=== PATIENT | female | born 1995 | race African-American/Black ===

== ENCOUNTER 2019-10-10 16:11 | Emergency (ER) | payer OTHER ==
[2019-10-10 16:56] LABS: BASOPHILS # (AUTO) 0.1 10^3/uL (0.0-0.1); BASOPHILS % (AUTO) 0.8 %; EOSINOPHILS # (AUTO) 0.1 10^3/uL (0.0-0.7); EOSINOPHILS % (AUTO) 0.6 %; HGB - HEMOGLOBIN 14.1 g/dL (12.0-16.0); LYMPHOCYTES # (AUTO) 2.5 10^3/uL (1.5-3.5); LYMPHOCYTES % (AUTO) 23.3 %; MEAN CORPUSCULAR HGB CONC 33.3 g/dL (32.0-36.0); MEAN PLATELET VOLUME 9.5 fL (7.9-10.8); MONOCYTES # (AUTO) 1.1 10^3/uL (0.0-1.0); MONOCYTES % (AUTO) 10.6 %; NEUTROPHILS # (AUTO) 6.8 10^3/uL (1.5-6.6); NEUTROPHILS % (AUTO) 64.3 %; PLT - PLATELET COUNT 294 10^3/uL (130-450); RED CELL DISTRIBUTION WIDTH 13.2 % (12.0-15.0); WHITE BLOOD COUNT 10.5 x10^3/uL (4.8-10.8)
[2019-10-10 17:09] LABS: BILIRUBIN,URINE NEGATIVE (NEGATIVE); GLUCOSE, URINE (UA) NEGATIVE (NEGATIVE); KETONES,URINE (UA) TRACE mg/dL (NEGATIVE); LEUKOCYTE ESTERASE, URINE NEGATIVE (NEGATIVE); NITRITE,URINE NEGATIVE (NEGATIVE); OCCULT BLOOD,URINE NEGATIVE (NEGATIVE); PROTEIN,URINE NEGATIVE (NEGATIVE); UROBILINOGEN,URINE 0.2 (NORMAL) E.U./dL (NORMAL)
[2019-10-10 17:10] LABS: ALBUMIN 4.2 g/dL (3.2-5.5); ALBUMIN/GLOBULIN RATIO 1.2 (1.0-2.2); BILIRUBIN,TOTAL 0.4 mg/dL (0.2-1.0); CALCIUM 9.7 mg/dL (8.5-10.3); CREATININE 0.7 mg/dL (0.4-1.0); TOTAL PROTEIN 7.6 g/dL (6.7-8.2)
--- NOTE | 2019-10-10 17:11 | ED Physician Documentation ---
History of Present Illness - Stated complaint Stated Complaint: NAUS/VOM/DIZZY - Chief complaint Chief Complaint: Abd Pain - History obtained from History obtained from: Patient, Family - History of Present Illness Timing: Today Pain level max: 2 Pain level now: 1 - Additonal information Additional information: 24-year-old female presents to the emergency department stating that she is approximately 6 weeks and has had vomiting x2 today. Has had lower abdominal cramping. No bleeding. 1 para 0. No medical problems. Nothing makes it better or worse. Review of Systems Constitutional: denies: Fever, Chills Respiratory: denies: Cough GI: reports: Nausea, Vomiting. denies: Diarrhea : reports: Now EGA. denies: Dysuria Skin: denies: Rash Musculoskeletal: denies: Neck pain, Back pain Neurologic: denies: Headache PD PAST MEDICAL HISTORY - Past Medical History Past Medical History: No - Past Surgical History Past Surgical History: No - Present Medications Home Medications: Ambulatory Orders Medication Instructions Recorded Confirmed Metoclopramide [Reglan] 10 mg PO Q6H PRN #20 tablet 10/10/19 - Allergies Allergies/Adverse Reactions: Allergies Allergy/AdvReac Type Severity Reaction Status Date / Time No Known Drug Allergies Allergy Verified 10/10/19 16:42 - Living Situation Living Situation: reports: With family Living Arrangement: reports: At home - Social History Does the pt have substance abuse?: No - Family History Family history: reports: Non contributory PD ED PE NORMAL - Vitals Vital signs reviewed: Yes - General General: Alert and oriented X 3, No acute distress - HEENT HEENT: Moist mucous membranes - Neck Neck: Supple, no meningeal sign - Cardiac Cardiac: RRR - Respiratory Respiratory: No respiratory distress, Clear bilaterally - Abdomen Abdomen: Soft, Non tender, Non distended - Derm Derm: Warm and dry - Extremities Extremities: No edema - Neuro Neuro: Alert and oriented X 3 - Psych Psych: Normal mood, Normal affect Results - Vitals Vitals: Vital Signs - 24 hr 10/10/19 10/10/19 16:28 18:33 Temperature 36.4 C L Heart Rate 79 74 Respiratory 20 18 Rate Blood Pressure 146/102 H 129/81 H O2 Saturation 99 99 Oxygen O2 Source Room air - Labs Labs: Laboratory Tests 10/10/19 10/10/19 10/10/19 16:48 16:48 16:48 WBC 10.5 RBC 4.70 Hgb 14.1 Hct 42.3 MCV 90.0 MCH 30.0 MCHC 33.3 RDW 13.2 Plt Count 294 MPV 9.5 Neut # (Auto) 6.8 H Lymph # (Auto) 2.5 Morton # (Auto) 1.1 H Eos # (Auto) 0.1 Baso # (Auto) 0.1 Absolute Nucleated RBC 0.00 Nucleated RBC % 0.0 Sodium 133 L Potassium 3.7 Chloride 98 L Carbon Dioxide 22 Anion Gap 13.0 BUN 10 Creatinine 0.7 Estimated GFR (MDRD) 127 Glucose 97 Calcium 9.7 Total Bilirubin 0.4 AST 16 ALT 14 Alkaline Phosphatase 43 Total Protein 7.6 Albumin 4.2 Globulin 3.4 Albumin/Globulin Ratio 1.2 Lipase 29 HCG, Quant 09828.00 Urine Color Urine Clarity Urine pH Ur Specific [place] Urine Protein Urine Glucose (UA) Urine Ketones Urine Occult Blood Urine Nitrite Urine Bilirubin Urine Urobilinogen Ur Leukocyte Esterase Ur Microscopic Review Urine Culture Comments Blood Type 10/10/19 10/10/19 16:48 17:00 WBC RBC Hgb Hct MCV MCH MCHC RDW Plt Count MPV Neut # (Auto) Lymph # (Auto) Morton # (Auto) Eos # (Auto) Baso # (Auto) Absolute Nucleated RBC Nucleated RBC % Sodium Potassium Chloride Carbon Dioxide Anion Gap BUN Creatinine Estimated GFR (MDRD) Glucose Calcium Total Bilirubin AST ALT Alkaline Phosphatase Total Protein Albumin Globulin Albumin/Globulin Ratio Lipase HCG, Quant Urine Color YELLOW Urine Clarity CLEAR Urine pH 6.0 Ur Specific [place] >=1.030 H Urine Protein NEGATIVE Urine Glucose (UA) NEGATIVE Urine Ketones TRACE Urine Occult Blood NEGATIVE Urine Nitrite NEGATIVE Urine Bilirubin NEGATIVE Urine Urobilinogen 0.2 (NORMAL) Ur Leukocyte Esterase NEGATIVE Ur Microscopic Review NOT INDICATED Urine Culture Comments NOT INDICATED Blood Type O POSITIVE - Rads (name of study) OB ultrasound Radiology: Prelim report reviewed, EMP read contemporaneously, See rad report PD MEDICAL DECISION MAKING - ED course Complexity details: reviewed results, re-evaluated patient, considered differential, d/w patient, d/w family ED course: 24 year old female with an intrauterine , estimated 6 weeks and 3 days. She is well-appearing, nontoxic. Tolerating p.o. without difficulty here. Will prescribe Reglan for home. No significant lab abnormalities. Patient counseled regarding signs and symptoms for which I believe and urgent re- evaluation would be necessary. Patient with good understanding of and agreement to plan and is comfortable going home at this time This document was made in part using voice recognition software. While efforts a re made to proofread this document, sound alike and grammatical errors may occur. 1. Single living intrauterine with calculated gestational age of 6 weeks 3 days corresponding to an estimated delivery date of 06/01/2020. 2. Perigestational hypoechoic region compatible with a subchorionic hematoma. Recommend follow-up clinically. 3. Probable corpus luteal cysts in the ovaries. Departure - Departure Disposition: Home, Self Care Clinical Impression: Qualifiers: Weeks of gestation: unspecified Qualified Code(s): Z34.90 - Encounter for supervision of normal , unspecified, unspecified trimester Vomiting Qualifiers: Vomiting type: unspecified Vomiting Intractability: non-intractable Nausea pr esence: without nausea Qualified Code(s): R11.11 - Vomiting without nausea Condition: Good Instructions: ED Preg Morning Sickness Follow-Up: [facility] [Provider Group] - Within 1 week Prescriptions: Metoclopramide [Reglan] 10 mg PO Q6H PRN #20 tablet PRN Reason: Nausea / Vomiting Comments: . Follow-up with OB for further care. Drink plenty of fluids. You are about 6 weeks along. Discharge Date/Time: 10/10/19 18:51
[2019-10-10 17:17] LABS: CLARITY,URINE CLEAR (CLEAR)
[2019-10-10 18:43] VITALS: BP 129/81
--- NOTE | 2019-10-10 19:07 | Ultrasound Report ---
PROCEDURE: OB First Trimester INDICATIONS: 6 weeks preg, abd pain OUTSIDE/PRIOR DATING DATA: Last menstrual period (LMP): 08/25/2019. LMP-based estimated date of delivery (VERITO): 05/31/2020. First dating scan (date and location): 10/10/2019. Estimated date of delivery (VERITO) from first dating scan: 06/01/2020. TECHNIQUE: Real-time scanning was performed of the fetus and maternal pelvic organs, with image documentation. COMPARISON: None. FINDINGS: Embryo: There is an intrauterine with a gestational sac, yolk sac, and pole identifi ed. The crown-rump length measures up to 0.6 cm corresponding to a gestational age of 6 weeks 3 days. There is heart motion with a rate of 1 37 bpm. There is a small heterogeneous hypoechoic regio n adjacent to the gestational sac compatible with a small subchorionic hematoma, measuring up to appr oximately 2.7 x 1.5 x 1.4 cm. Measurement variability in dating: +/- 4 weeks by LMP, +/- 7 days by mean sac diameter (use before 6 weeks gestation if crown-rump length not able to be measured), +/- 5 days by crown-rump length (6-12 weeks gestation). Maternal organs: Ovaries appear within normal size limits bilaterally. There is a hypoechoic cystic structure within the right ovary with peripheral vascularity on Doppler interrogation measuring up to 2.5 cm likely representing a corpus luteal cyst. A hypoechoic cystic lesion is also demonstrated wit hin the left ovary measuring up to 2.3 cm. Limited images through the kidneys demonstrate no hydronep hrosis. There is a small amount of pelvic free fluid which appears within physiologic limits. IMPRESSION: 1. Single living intrauterine with calculated gestational age of 6 weeks 3 days correspondi ng to an estimated delivery date of 06/01/2020. 2. Perigestational hypoechoic region compatible with a subchorionic hematoma. Recommend follow-up cli nically. 3. Probable corpus luteal cysts in the ovaries. Reviewed by: Laron Russo MD on 10/10/2019 7:05 PM PDT Approved by: Laron Russo MD on 10/10/2019 7:05 PM PDT Station ID: [id number]
== END 2019-10-10 18:51 | disposition home or self-care (01) ==
LOC: ED 16:11
DX: O21.0 Mild hyperemesis gravidarum (principal); Z3A.01 Less than 8 weeks gestation of pregnancy
CPT/HCPCS: 36415; 76801; 76817; 80053; 81001; 81003; 83690; 84702; 85025; 86900; 86901; 87086; 99284

== ENCOUNTER 2019-11-05 20:01 | Emergency (ER) | payer OTHER ==
[2019-11-05] MEDS ORDERED: diphenhydrAMINE INJ 50 MG/ML VIAL IVP STA (20:38)
[2019-11-05] MEDS ORDERED: SODIUM CHLORIDE 0.9% 1,000 ML IV STA (20:38)
[2019-11-05] MEDS ORDERED: PROCHLORPERAZINE 10 MG/2 ML VIAL IVP STA (20:38)
--- NOTE | 2019-11-05 20:41 | ED Physician Documentation ---
History of Present Illness - Stated complaint Stated Complaint: HEADACHE - Chief complaint Chief Complaint: Neuro - History obtained from History obtained from: Patient - Additonal information Additional information: 24-year-old female presents to the emergency department for evaluation of 3 days of headache. She is approximately 10 weeks . This is her first . She reports a longstanding history of headaches that she attributes to migraines. She states that she typically has photosensitivity and nausea which is true with this headache. Today's headache though also radiates down into her neck. She denies that she has had vomiting or diarrhea. She has had no dysuria urgency or frequency. No falls or trauma. She denies leg swelling, chest pain or palpitations. Headache is not sudden onset, nor is it worst of life. Typically when not she takes Excedrin with caffeine and Tylenol for her headache however the Tylenol today did not work therefore she presents to the emergency department. She denies any previous history of hypertension or diabetes. No personal history of blood clots or cancer. Patient seen recently in the emergency department (10/10/2019) for lower abdominal pain. Intrauterine was confirmed with an VERITO of June 01, 2020. Patient denies lower pelvic pain. No vaginal bleeding or discharge. Review of Systems Constitutional: denies: Fever, Chills, Fatigue, Weight Loss Eyes: reports: Photophobia. denies: Loss of vision, Decreased vision Ears: denies: Loss of hearing, Ear pain, Drainage/discharge Nose: denies: Rhinorrhea / runny nose, Congestion Throat: denies: Dental pain / toothache Cardiac: denies: Chest pain / pressure, Palpitations, Pedal edema, Calf pain Respiratory: denies: Dyspnea, Cough, Hemoptysis GI: reports: Nausea. denies: Abdominal Pain, Abdominal Swelling, Vomiting, Constipation, Diarrhea : reports: Now EGA (VERITO 06/02/2019). denies: Dysuria, Frequency, Hesitancy, Unable to Void Skin: reports: Reviewed and negative. denies: Rash, Lesions, Abrasion (s) Musculoskeletal: reports: Neck pain. denies: Back pain, Extremity pain, Joint pain, Extremity swelling Neurologic: reports: Headache. denies: Generalized weakness, Focal weakness, Difficulty speaking, Near syncope, Syncope, Seizure, Confused, Altered mental status, Head injury, LOC Psychiatric: reports: Reviewed and negative PD PAST MEDICAL HISTORY - Past Medical History Cardiovascular: None Respiratory: None Neuro: Headaches, Migraines Endocrine/Autoimmune: None GI: None WARP TIER: None : None HEENT: None Psych: None Musculoskeletal: None Derm: None - Past Surgical History Past Surgical History: No - Present Medications Home Medications: Ambulatory Orders Medication Instructions Recorded Confirmed Metoclopramide [Reglan] 10 mg PO Q6H PRN #20 tablet 10/10/19 Prochlorperazine [Compazine] 5 mg PO BID PRN #5 tablet 11/05/19 - Allergies Allergies/Adverse Reactions: Allergies Allergy/AdvReac Type Severity Reaction Status Date / Time No Known Drug Allergies Allergy Verified 11/05/19 20:12 - Social History Does the pt smoke?: No Smoking Status: Never smoker Does the pt drink ETOH?: No Does the pt have substance abuse?: No - Immunizations Immunizations are current?: Yes PD ED PE NORMAL - General General: Alert and oriented X 3, No acute distress, Well developed/nourished - HEENT HEENT: Atraumatic, EOMI - Neck Neck: Supple, no meningeal sign, No adenopathy - Cardiac Cardiac: RRR, No murmur - Respiratory Respiratory: No respiratory distress, Clear bilaterally - Abdomen Abdomen: Normal bowel sounds, Soft, Non tender - Derm Derm: Normal color, Warm and dry, No rash - Extremities Extremities: No deformity, No tenderness to palpate, Normal ROM s pain - Neuro Neuro: Alert and oriented X 3, tightener 2-12 intact, No motor deficit, No sensory deficit, Normal speech Eye Opening: Spontaneous Motor: Obeys Commands Verbal: Oriented GCS Score: 15 - Psych Psych: Normal mood Results - Vitals Vitals: Vital Signs - 24 hr 11/05/19 11/05/19 20:05 20:21 Temperature 36.1 C L Heart Rate 94 88 Respiratory 16 16 Rate Blood Pressure 134/81 H 126/79 O2 Saturation 99 99 Oxygen O2 Source Room air - Labs Labs: Laboratory Tests 11/05/19 20:40 Urine Color YELLOW Urine Clarity CLEAR Urine pH 6.5 Ur Specific [place] 1.015 Urine Protein NEGATIVE Urine Glucose (UA) NEGATIVE Urine Ketones NEGATIVE Urine Occult Blood NEGATIVE Urine Nitrite NEGATIVE Urine Bilirubin NEGATIVE Urine Urobilinogen 0.2 (NORMAL) Ur Leukocyte Esterase NEGATIVE Ur Microscopic Review NOT INDICATED Urine Culture Comments NOT INDICATED PD MEDICAL DECISION MAKING - ED course Complexity details: reviewed old records, reviewed results, re-evaluated patient, considered differential, d/w patient ED course: This is a 24-year-old female with a known history of headaches presents with 3 days of hemicrania with associated nausea and photosensitivity. This headache is not drastically different from her baseline. However today she is . This is a desired . She was seen in this emergency department recently for her and had an ultrasound that confirmed a live IUP. - This headache is not sudden onset no associated fevers or trauma. She has no leg swelling or elevated blood pressure. No proteinuria. My suspicion for subarachnoid hemorrhage infectious etiology, tumor/mass or preeclampsia is very low. - Her urine today does not show signs of an infection. In the emergency department she was initially given an IV and given 1 L of IV fluids with Benadryl and Compazine. On reassessment she reported That the headache had fully abated. At this time we will prescribe a limited amount of Compazine for nausea use at home. I will recommend Tylenol for primary management of the headache and close follow-up with her LOAD MANAGER Departure - Departure Disposition: 01 Home, Self Care Clinical Impression: Headache Qualifiers: Headache type: unspecified Headache chronicity pattern: acute headache Intractability: not intractable Qualified Code(s): R51 - Headache Qualifiers: Weeks of gestation: 10 weeks Qualified Code(s): Z3A.10 - 10 weeks gestation of Condition: Stable Record reviewed to determine appropriate education?: Yes Prescriptions: Prochlorperazine [Compazine] 5 mg PO BID PRN #5 tablet PRN Reason: Nausea / Vomiting Comments: I am glad that your headache feels better. Please go home drink lots of fluids. If you develop another headache it is okay to take 1000 mg of Tylenol 3 times a day. I have also prescribed nausea medicine called Compazine. You can take this 2 or 3 times a day for nausea. Please discuss this emergency department visit with your pharmacy sales representative. Today your vital signs were normal. Your blood pressure was not elevated. Your urinalysis was also unremarkable. If you develop a sudden severe headache, have uncontrolled vomiting, develop any fevers, have sudden severe lower abdominal pain or vaginal bleeding please return to the emergency department
[2019-11-05 20:50] LABS: BILIRUBIN,URINE NEGATIVE (NEGATIVE); GLUCOSE, URINE (UA) NEGATIVE (NEGATIVE); KETONES,URINE (UA) NEGATIVE (NEGATIVE); LEUKOCYTE ESTERASE, URINE NEGATIVE (NEGATIVE); NITRITE,URINE NEGATIVE (NEGATIVE); OCCULT BLOOD,URINE NEGATIVE (NEGATIVE); PH,URINE 6.5 PH (5.0-7.5); PROTEIN,URINE NEGATIVE (NEGATIVE); UROBILINOGEN,URINE 0.2 (NORMAL) E.U./dL (NORMAL)
[2019-11-05 21:00] LABS: CLARITY,URINE CLEAR (CLEAR)
[2019-11-05 21:46] VITALS: BP 124/81
== END 2019-11-05 21:50 | disposition home or self-care (01) ==
LOC: ED 20:01
DX: O99.89 Other specified diseases and conditions complicating pregnancy, childbirth and the puerperium (principal); R51 Headache; Z3A.10 10 weeks gestation of pregnancy
CPT/HCPCS: 36415; 81003; 96374; 99283; 99284; J1200; 81001; 87086

== ENCOUNTER 2020-01-14 13:38 | Outpatient (CLI) | payer OTHER ==
--- NOTE | 2020-01-14 15:39 | Ultrasound Report ---
PROCEDURE: OB Detailed Eval INDICATIONS: SCREENING OUTSIDE/PRIOR DATING DATA: Last menstrual period (LMP): 08/25/2019. LMP-based estimated date of delivery (VERITO): 05/31/2020. First dating scan (date and location): 10/10/2019. Estimated date of delivery (VERITO) from first dating scan: 06/01/2020. TECHNIQUE: Real-time scanning was performed of the fetus, with image documentation and biometric measurements. Endovaginal scanning: Not performed COMPARISON: 10/10/2019. FINDINGS: General: A single living intrauterine gestation is present. Presentation: Vertex Placenta: Placental position is posterior, without previa. Amniotic fluid index: 15.0 cm cm, 58th percentile for gestational age. Largest pocket measures 4.6 cm. heart rate: 141 beats per minute. Maternal cervical canal: 4.4 cm long; normal length is 2.5 cm or more. biometrics: Biparietal diameter: 4.6 cm, 20 weeks 0 days Head circumference: 18.1 cm, 20 weeks 3 days Abdominal circumference: 15.6 cm, 20 weeks 6 days Femur length: 3.3 cm, 20 weeks 2 days Estimated gestational age from initial scan: 20 weeks 1 day. Composite gestational age from present scan: 20 weeks 3 days Estimated weight and percentile: 359 g, 67th percentile Measurement variability in biometric dating: +/- 10 days from 12-20 weeks gestation, +/- 2 weeks from 20-30 weeks gestation, +/- 3 weeks at 30 weeks gestation or later. Anatomic survey: Neuro: Ventricles are normal at less than 10 mm. Cisterna magna is normal at 3-11 mm. Cerebellum i s normal in size and morphology. Nuchal skin fold: Not seen secondary to gestational position Face: Not well seen secondary to gestational position Spine: No evidence for spina bifida. Heart: 4-chambered heart is present, with normal ventricular outflow tracts. Left ventricular echog enic focus. Diaphragm: Diaphragm is intact. Stomach: Left-sided stomach is present. Kidneys: No hydronephrosis. Normal is less than 5 mm in 2nd trimester, less than 7 mm in 3rd trimester. Cord: 3 vessel cord has orthotopic insertion. Bladder: Normal in size. Extremities: All 4 extremities are visualized. IMPRESSION: Single living intrauterine fetus in vertex presentation Intracardiac echogenic focus, technically nonspecific finding although recommend correlation with mat ernal risk factors for aneuploidy, and screening results. face and nuchal region not well seen secondary to gestational position. Expected interval growth Reviewed by: Mario Donis MD on 01/14/2020 3:38 PM PST Approved by: Mario Donis MD on 01/14/2020 3:38 PM PST Station ID: [id number]
== END 2020-01-14 13:39 | disposition home or self-care (01) ==
LOC: DI 13:38
PROVIDERS: ATTEND Nurse Practitioner Obstetrics & Gynecology
DX: Z36.89 Encounter for other specified antenatal screening (principal)

== ENCOUNTER 2020-01-20 17:30 | Outpatient (CLI) | payer OTHER ==
[2020-01-20 18:02] VITALS: BP 125/77
--- NOTE | 2020-01-20 18:32 | PROVIDER PROGRESS NOTE ---
- HPI Chief Complaint: Other Current : Current EDU 05/31/20 Gestation 21 Weeks and 1 Days 1 Vital Signs Temperature 37.2 C 01/20/20 17:50 Heart Rate 96 01/20/20 17:50 Respiratory Rate 18 01/20/20 17:50 Blood Pressure 125/77 01/20/20 17:50 O2 Saturation 99 01/20/20 17:50 Temperature 37.2 C 01/20/20 17:50 Heart Rate 96 01/20/20 17:50 Respiratory Rate 18 01/20/20 17:50 Blood Pressure 125/77 01/20/20 17:50 O2 Saturation 99 01/20/20 17:50 - Plan Plan: S: Krys presents today @ 21wks gestation to [facility] with c/o right lower quadrant abdominal pain that occurred today when she [place] the [place]. She states the pain resolved when she sat down but then returned when she stood up and started walking again. She states she got the car and the pain had resolved and she has not felt the pain since that time. She denies vaginal bleeding or leakage of fluid. She denies BARGER, SOB, N/V, diarrhea, or constipation. She reports regular bowel movement this morning. She feels adequately hydrated. She denies urinary symptoms or abnormal vaginal discharge. O: FHR by doppler 150s. Tocometry negative for contractions. Normocephalic, atraumatic. PERRL. Abdomen gravid, soft, nontender. No rebound tenderness or guarding noted upon palpation. Bilateral LE's no edema. Mood is good. A: 24yo @ 21.0wks gestation right lower quadrant abdominal pain - round ligament pain P: Reviewed round ligament pain extensively. Discussed when to be concerned about pain and reviewed labor precautions. Pt has emergency contact information. She was released home with precautions. Pt verbalized understanding and agrees with above plan. She denies further questions or concerns at this time.
== END 2020-01-20 18:30 | disposition home or self-care (01) ==
LOC: WFO 17:30 → FBP 17:32 → WFO 18:30
PROVIDERS: ATTEND Nurse Practitioner Obstetrics & Gynecology
DX: O99.891 Other specified diseases and conditions complicating pregnancy (principal); R10.31 Right lower quadrant pain; Z3A.21 21 weeks gestation of pregnancy
CPT/HCPCS: 99212

== ENCOUNTER 2020-02-10 11:35 | Outpatient (CLI) | payer OTHER ==
--- NOTE | 2020-02-10 15:20 | Ultrasound Report ---
PROCEDURE: OB F/U or Repeat INDICATIONS: SCREENING, COMPLETION OF FAS OUTSIDE/PRIOR DATING DATA: Last menstrual period (LMP): 08/25/2019. LMP-based estimated date of delivery (VERITO): 05/31/2020. First dating scan (date and location): 10/10/2019. Estimated date of delivery (VERITO) from first dating scan: 06/01/2020. TECHNIQUE: Real-time scanning was performed of the fetus, with image documentation and biometric measurements. Endovaginal scanning: Not performed COMPARISON: None. FINDINGS: General: A single living intrauterine gestation is present. Presentation: Vertex Placenta: Placental position is posterior, without previa. Amniotic fluid index: 20.6 cm, 91st percentile for gestational age. heart rate: 149 beats per minute. Maternal cervical canal: 5.6 cm long; normal length is 2.5 cm or more. anatomy: Nasolabial anatomy is normal. Normal nuchal thickness of 4.4 mm. Echogenic focus in the left ventricle is present similar to the prior study. IMPRESSION: Single live intrauterine gestation with normal IGNACIA and heart rate. Left ventricle echogenic focus similar to prior studies. Normal nasolabial anatomy. Reviewed by: Kenny Bond MD on 02/10/2020 3:19 PM PST Approved by: Kenny Bond MD on 02/10/2020 3:19 PM PST Station ID: [id number]
== END 2020-02-10 11:36 | disposition home or self-care (01) ==
LOC: DI 11:35
PROVIDERS: ATTEND Nurse Practitioner Obstetrics & Gynecology
DX: Z36.89 Encounter for other specified antenatal screening (principal)

== ENCOUNTER 2020-03-12 08:00 | Outpatient (CLI) | payer OTHER ==
[2020-03-12 11:17] LABS: HGB - HEMOGLOBIN 11.4 g/dL (12.0-16.0); MEAN CORPUSCULAR HEMOGLOBIN 30.9 pg (27.0-31.0); MEAN CORPUSCULAR HGB CONC 33.1 g/dL (32.0-36.0); MEAN CORPUSCULAR VOLUME 93.2 fL (81.0-99.0); MEAN PLATELET VOLUME 10.1 fL (7.9-10.8); RED BLOOD COUNT 3.69 10^6/uL (4.20-5.40); WHITE BLOOD COUNT 12.5 x10^3/uL (4.8-10.8)
== END 2020-03-12 23:59 | disposition home or self-care (01) ==
LOC: LAB 08:00
PROVIDERS: ATTEND Advanced Practice Midwife
DX: Z34.90 Encounter for supervision of normal pregnancy, unspecified, unspecified trimester (principal); Z36.89 Encounter for other specified antenatal screening
CPT/HCPCS: 36415; 82950; 85027

== ENCOUNTER 2020-03-16 10:59 | Outpatient (CLI) | payer OTHER | END 2020-03-16 11:00 | disposition home or self-care (01) | LOC: LAB 10:59 | PROVIDERS: ATTEND Advanced Practice Midwife | DX: O99.810 Abnormal glucose complicating pregnancy (principal) | CPT/HCPCS: 36415; 82951; 82952 ==

== ENCOUNTER 2020-04-13 14:00 | Outpatient (CLI) | payer OTHER ==
[2020-04-13 14:21] VITALS: BP 128/76
[2020-04-13 14:35] LABS: BASOPHILS % (AUTO) 0.3 %; EOSINOPHILS # (AUTO) 0.1 10^3/uL (0.0-0.7); EOSINOPHILS % (AUTO) 0.8 %; HCT - HEMATOCRIT 33.1 % (37.0-47.0); HGB - HEMOGLOBIN 11.3 g/dL (12.0-16.0); LYMPHOCYTES # (AUTO) 1.9 10^3/uL (1.5-3.5); MEAN CORPUSCULAR HEMOGLOBIN 30.7 pg (27.0-31.0); MEAN CORPUSCULAR HGB CONC 34.1 g/dL (32.0-36.0); MEAN CORPUSCULAR VOLUME 89.9 fL (81.0-99.0); MEAN PLATELET VOLUME 10.7 fL (7.9-10.8); MONOCYTES # (AUTO) 1.3 10^3/uL (0.0-1.0); MONOCYTES % (AUTO) 10.9 %; NEUTROPHILS # (AUTO) 8.3 10^3/uL (1.5-6.6); NEUTROPHILS % (AUTO) 71.3 %; PLT - PLATELET COUNT 197 10^3/uL (130-450); RED BLOOD COUNT 3.68 10^6/uL (4.20-5.40); RED CELL DISTRIBUTION WIDTH 13.4 % (12.0-15.0); WHITE BLOOD COUNT 11.7 x10^3/uL (4.8-10.8)
[2020-04-13 14:53] LABS: ALBUMIN 3.2 g/dL (3.2-5.5); ALBUMIN/GLOBULIN RATIO 0.9 (1.0-2.2); BILIRUBIN,TOTAL 0.5 mg/dL (0.2-1.0); CALCIUM 8.9 mg/dL (8.5-10.3); CREATININE 0.5 mg/dL (0.4-1.0); POTASSIUM 3.6 mmol/L (3.5-5.0); TOTAL PROTEIN 6.6 g/dL (6.7-8.2)
--- NOTE | 2020-04-13 16:21 | PROVIDER PROGRESS NOTE ---
- HPI Chief Complaint: Other Current : Current EDU 05/31/20 Gestation 33 Weeks and 1 Days 1 Para 0 Vital Signs Temperature 37.5 C 04/13/20 14:17 Heart Rate 107 H 04/13/20 14:17 Respiratory Rate 16 04/13/20 14:17 Blood Pressure 128/76 04/13/20 14:17 O2 Saturation 100 04/13/20 14:17 Temperature 37.5 C 04/13/20 14:17 Heart Rate 107 H 04/13/20 14:17 Respiratory Rate 16 04/13/20 14:17 Blood Pressure 128/76 04/13/20 14:17 O2 Saturation 100 04/13/20 14:17 - Procedures OB Procedure Performed: NST Diagnosis/Indication for NST: Other NST Procedure: NST Procedure Start Date 04/13/20 Start Time 14:10 Stop Time 14:36 Vibroacoustic Stimulation Used No Patient States Movement Yes Service Date of procedure: 04/13/20 - Plan Plan: Patient evaluated [id number]: S: Krys is a 25yo @ 33.1wks gestation by LMP c/w 6.3wk U/S who presents to [facility] with c/o pain at umbilicus that radiates down her abdomen to her left side. She states the pain has been persistent for approximately 1 month but seems to be getting progressively worse. She noted the pain initially when removing her naval piercing. Describes pain as burning sensation that feels just under the skin surface. States the pain changes in intensity regardless of her activity. States sometimes it lasts x 10 minutes and other times it lasts for an hour or more. She acknowledges that the pain does seem to correlate with movements. She denies vaginal bleeding or leakage of fluid. She denies contractions and she reports +FM. She states she has had normal bowel movements and her most recent bowel movement was this morning and was normal. She denies N/V. She denies RUQ pain. She denies urinary symptoms. She reports eating a regular diet and denies eating anything out of the ordinary. She reports she feels adequately hydrated. O: BP 128/76, HR 107; T 37.5 FHR baseline 135, moderate variability, + accels, no decels Intermittent uterine irritability noted via tocometry but pt does not appreciate as contractions and they palpate mild with soft resting tone. SVE deferred CBC: WBC 11.7; RBC 3.68; Hgb 11.3; Hct 33.1; PLT 197 CMP: Creatinine 0.5; AST 14; ALT 15 Ultrasound: BPP 8/8 Placenta posterior, fundal and WNL. No evidence of abruption noted. Of note, foot noted directly under umbilicus and easily palpable. A/P: Abdominal pain, periumbilical - likely related to naval piercing and extremity pressure. Encouraged use of maternity support belt. Tylenol 1000mg q 8hr PRN for pain relief. Simethicone PRN Pt released home with precautions. Pt verbalized understanding and agrees to above plan. She denies further questions or concerns at this time. FINAL DIAGNOSIS: Abdominal pain, periumbilical
--- NOTE | 2020-04-13 16:31 | Ultrasound Report ---
PROCEDURE: OB Limited INDICATIONS: LLQ abd pain, rule out abruption, lazaro 05/31/20 OUTSIDE/PRIOR DATING DATA: Last menstrual period (LMP): 08/25/2019. LMP-based estimated date of delivery (LAZARO): 05/31/2020. Provider stated First dating scan (date and location): 10/10/2019. Estimated date of delivery (LAZARO) from first dating scan: 06/01/2020. TECHNIQUE: Real-time scanning was performed of the fetus, with image documentation. Endovaginal scanning: Not indicated COMPARISON: 02/10/2020, 01/14/2020, 10/10/2019. FINDINGS: A single living intrauterine gestation is present. Presentation: Vertex Placenta: Placental position is posterior fundal, without previa. Amniotic fluid index: 21.3 cm, normal for gestational age. Largest pocket measures 6.3 cm. heart rate: 137 beats per minutes. Maternal cervical canal: 3.9 cm long; normal length is 2.5 cm or more. Estimated gestational age from initial scan: 33 weeks 1 day. Placenta appears normal in thickness and echotexture. No evidence of abruption. Patient wasn't no ech ogenic focus within left ventricle is grossly unchanged. stomach, chest, bilateral kidneys and urinary bladder are within normal limits. IMPRESSION: 1. Placenta location is posterior, no evidence of placenta previa. No evidence of placenta abruption. 2. Single live intrauterine with fetus in vertex presentation. heart rate is 137 bpm. Normal amount of amniotic fluid. Normal cervical length. 3. Stable left ventricle echogenic focus unchanged from prior study. Reviewed by: Kg Josue MD on 04/13/2020 4:30 PM PST Approved by: Kg Josue MD on 04/13/2020 4:30 PM PST Station ID: [id number]
== END 2020-04-13 16:00 | disposition home or self-care (01) ==
LOC: WFO 14:00 → FBP 14:20 → WFO 16:00
PROVIDERS: ATTEND Nurse Practitioner Obstetrics & Gynecology
DX: O99.891 Other specified diseases and conditions complicating pregnancy (principal); R10.815 Periumbilic abdominal tenderness; Z3A.33 33 weeks gestation of pregnancy
CPT/HCPCS: 36415; 59025; 80053; 85025; 99213

== ENCOUNTER 2020-05-07 08:00 | Outpatient (CLI) | payer OTHER | END 2020-05-07 23:59 | disposition home or self-care (01) | LOC: LAB.R 08:00 | PROVIDERS: ATTEND Nurse Practitioner Obstetrics & Gynecology | DX: Z36.85 Encounter for antenatal screening for Streptococcus B (principal) | CPT/HCPCS: 87797 ==

== ENCOUNTER 2020-05-14 15:13 | Outpatient (CLI) | payer OTHER ==
--- NOTE | 2020-05-14 17:02 | Ultrasound Report ---
PROCEDURE: OB F/U or Repeat INDICATIONS: UTERINE SIZE DEICREPANCY 3RD TRI OUTSIDE/PRIOR DATING DATA: Last menstrual period (LMP): 08/25/2019. LMP-based estimated date of delivery (VERITO): 05/31/2020. First dating scan (date and location): 10/10/2019. Estimated date of delivery (VERITO) from first dating scan: 06/01/2020. TECHNIQUE: Real-time scanning was performed of the fetus, with image documentation and biometric measurements. Endovaginal scanning: Not performed COMPARISON: 04/13/2020 ultrasound examination FINDINGS: General: A single living intrauterine gestation is present. Presentation: Vertex Placenta: Placental position is posterior, without previa. Amniotic fluid index: 19 cm, 81st percentile for gestational age heart rate: 141 beats per minute. Maternal cervical canal: 5.6 cm long; normal length is 2.5 cm or more. BPD: 93 mm; 37 weeks 5 days Head circumference: 332 mm; 37 weeks 6 days Abdominal circumference: 345 mm; 38 weeks 3 days Femur length: 363 mm; 36 weeks 3 days Estimated gestational age by initial ultrasound: 37 weeks 4 days Composition gestational age today: 37 weeks 4 days Other: Survey of anatomy includes normal chest/diaphragm, stomach/abdomen, bilateral renal yazmin ons, and urinary bladder/pelvis. IMPRESSION: Single living intrauterine gestation as described above. Normal interval growth. Reviewed by: Homar Roman MD on 05/14/2020 5:01 PM PDT Approved by: Homar Roman MD on 05/14/2020 5:01 PM PDT Station ID: [id number]
== END 2020-05-14 15:14 | disposition home or self-care (01) ==
LOC: DI 15:13
PROVIDERS: ATTEND Nurse Practitioner Obstetrics & Gynecology
DX: O26.843 Uterine size-date discrepancy, third trimester (principal); Z3A.37 37 weeks gestation of pregnancy

== ENCOUNTER 2020-05-25 08:42 | Observation (INO) | payer OTHER ==
[2020-05-25] MEDS ORDERED: METHYLERGONOVINE 0.2 MG/ML VIAL IM PRN (08:49)
[2020-05-25] MEDS ORDERED: OXYTOCIN/SODIUM CHLORIDE 500 ML IV PRN (08:49)
[2020-05-25] MEDS ORDERED: CARBOPROST TROMETHAMINE 250 MCG/ML AMP IM PRN (08:49)
[2020-05-25] MEDS ORDERED: miSOPROStoL 200 MCG TABLET BC PRN (08:49)
[2020-05-25] MEDS ORDERED: TRANEXAMIC ACID IN NACL 1,000 MG/100 ML BAG IV PRN (08:49)
[2020-05-25] MEDS ORDERED: LIDOCAINE-MPF 1% 30 ML VIAL ID PRN (08:49)
[2020-05-25] MEDS ORDERED: SODIUM CHLORIDE FLUSH 0.9% 10 ML SYRINGE IVP PRN (08:49)
[2020-05-25] MEDS ORDERED: OXYTOCIN 10 UNIT/ML VIAL IM PRN (08:49)
[2020-05-25] MEDS ORDERED: SODIUM CHLORIDE FLUSH 0.9% 10 ML SYRINGE IVP SCH (09:00)
[2020-05-25] MEDS ORDERED: LACTATED RINGERS 1,000 ML IV SCH (09:00)
[2020-05-25] MEDS ORDERED: miSOPROStoL 100 MCG TABLET BC SCH (10:00)
[2020-05-25 10:25] LABS: BASOPHILS # (AUTO) 0.1 10^3/uL (0.0-0.1); BASOPHILS % (AUTO) 0.7 %; EOSINOPHILS # (AUTO) 0.1 10^3/uL (0.0-0.7); EOSINOPHILS % (AUTO) 0.5 %; HCT - HEMATOCRIT 36.6 % (37.0-47.0); HGB - HEMOGLOBIN 11.9 g/dL (12.0-16.0); LYMPHOCYTES # (AUTO) 1.7 10^3/uL (1.5-3.5); LYMPHOCYTES % (AUTO) 17.6 %; MEAN CORPUSCULAR HEMOGLOBIN 29.4 pg (27.0-31.0); MEAN CORPUSCULAR HGB CONC 32.5 g/dL (32.0-36.0); MEAN CORPUSCULAR VOLUME 90.4 fL (81.0-99.0); MEAN PLATELET VOLUME 11.5 fL (7.9-10.8); MONOCYTES # (AUTO) 1.2 10^3/uL (0.0-1.0); MONOCYTES % (AUTO) 12.5 %; NEUTROPHILS # (AUTO) 6.4 10^3/uL (1.5-6.6); NEUTROPHILS % (AUTO) 67.8 %; PLT - PLATELET COUNT 177 10^3/uL (130-450); RED BLOOD COUNT 4.05 10^6/uL (4.20-5.40); RED CELL DISTRIBUTION WIDTH 14.1 % (12.0-15.0); WHITE BLOOD COUNT 9.4 x10^3/uL (4.8-10.8)
[2020-05-25 10:27] VITALS: BP 126/83
--- NOTE | 2020-05-25 12:41 | PROVIDER PROGRESS NOTE ---
- HPI Chief Complaint: Other Current : Current EDU 05/31/20 Gestation 39 Weeks and 1 Days 1 Vital Signs Temperature 36.8 C 05/25/20 10:06 Heart Rate 90 05/25/20 10:06 Respiratory Rate 18 05/25/20 10:06 Blood Pressure 126/83 H 05/25/20 10:06 Temperature 36.8 C 05/25/20 10:06 Heart Rate 90 05/25/20 10:06 Respiratory Rate 18 05/25/20 10:06 Blood Pressure 126/83 H 05/25/20 10:06 O2 Saturation - Procedures OB Procedure Performed: NST NST Procedure: NST Procedure Start Time 14:10 Stop Time 14:36 - Plan Plan: Krys is a 25yo @ 39.1wks gestation who presents to [facility] for outpatient cervical ripening in anticipation for pre-induction cervical ripening. She had her routine visit this morning and c/o decreased movement over the past couple of days. She is now feeling movement as appropriate. She denies vaginal bleeding, leakage of fluid or contractions. NST performed 05/25/2020 NST read 05/25/2020 NST reactive. FHR baseline 150, moderate variability, + accels, no decels Pt administered 50mcg BC misoprostol x once. FHR was monitored continuously x 4 hours following administration of misoprostol. FHR remained Category I. HIV screen missed on labs - ordered COVID-19 swab ordered in anticipation for inpatient admission tomorrow. Pt released home with precautions. Pt to return tomorrow morning 05/26/2020 @ 0800 for elective IOL or sooner PRN. Pt verbalized understanding and agrees to above plan. She denies further questions or concerns at this time.
[2020-05-26 15:16] LABS: HIV AG/AB 4TH GEN NON-REACTIVE (NON-REACTIVE)
== END 2020-05-25 14:50 | disposition home or self-care (01) ==
LOC: WFO 08:42 → FBP 08:44 → WFO 08:48 → FBP 08:49
PROVIDERS: ADMIT Nurse Practitioner Obstetrics & Gynecology; ATTEND Nurse Practitioner Obstetrics & Gynecology
DX: Z34.03 Encounter for supervision of normal first pregnancy, third trimester (principal); Z3A.39 39 weeks gestation of pregnancy; Z20.822 Contact with and (suspected) exposure to COVID-19
CPT/HCPCS: 36415; 85025; 86850; 86900; 86901; 87389; 87635; A9270; G0378

== ENCOUNTER 2020-05-26 08:13 | Inpatient (IN) | payer OTHER ==
[2020-05-26] MEDS ORDERED: METHYLERGONOVINE 0.2 MG/ML VIAL IM PRN (09:10)
[2020-05-26] MEDS ORDERED: SODIUM CHLORIDE FLUSH 0.9% 10 ML SYRINGE IVP PRN (09:10)
[2020-05-26] MEDS ORDERED: OXYTOCIN 10 UNIT/ML VIAL IM PRN (09:10)
[2020-05-26] MEDS ORDERED: LIDOCAINE-MPF 1% 30 ML VIAL ID PRN (09:10)
[2020-05-26] MEDS ORDERED: TRANEXAMIC ACID IN NACL 1,000 MG/100 ML BAG IV PRN (09:10)
[2020-05-26] MEDS ORDERED: OXYTOCIN/SODIUM CHLORIDE 500 ML IV PRN (09:10)
[2020-05-26] MEDS ORDERED: ONDANSETRON 4 MG/2 ML VIAL IVP PRN (09:10)
[2020-05-26] MEDS ORDERED: CARBOPROST TROMETHAMINE 250 MCG/ML AMP IM PRN (09:10)
[2020-05-26] MEDS ORDERED: miSOPROStoL 200 MCG TABLET BC PRN (09:10)
--- NOTE | 2020-05-26 09:36 | HISTORY & PHYSICAL EXAMINATION ---
Admit History - Visit Reason Visit Reason: Other - : 1 Parity: 0 Premature: 0 Ectopic: 0 : 0 Care: positive: [facility] Risk/History: positive: None Complications This : positive: None Smoking Status: Never smoker - Mother's Labs Mother's Blood Type: positive: O Mother's RH: positive: Positive GBS: positive: Group B Step Negative Rubella Status: positive: Immune Meds/Allgy - Home Medications Home Medications: Ambulatory Orders Medication Instructions Recorded Confirmed Metoclopramide [Reglan] 10 mg PO Q6H PRN #20 tablet 10/10/19 Prochlorperazine [Compazine] 5 mg PO BID PRN #5 tablet 11/05/19 - Allergies Allergies/Adverse Reactions: Allergies Allergy/AdvReac Type Severity Reaction Status Date / Time No Known Drug Allergies Allergy Verified 11/05/19 20:12 Review of Systems - Constitutional Constitutional: denies: Fatigue, Fever, Chills, Malaise - Eyes Eyes: denies: Blurred vision, Spots in vision, Dipolpia - Cardiovascular Cariovascular: denies: Irregular heart rate, Palpitations, Chest pain, Edema - Respiratory Respiratory: denies: Cough, SOB at rest - Gastrointestinal Gastrointestinal: denies: Constipation, Diarrhea, Change in bowel habits - Integumentary Integumentary: denies: Rash, Pruritis - Neurological Neurological: denies: Headache Physical - Abdominal Exam Vital Signs: Temp Pulse Resp BP Pulse Ox 36.6 C 05/26/20 08:43 Contraction Intensity: positive: Mild Uterine Resting Tone: positive: Soft - Monitoring Heart Rate Baseline: 135 Strip Review: positive: Category I - Presentation Presentation: positive: Vertex - Vaginal Exam Membranes: positive: Membranes intact Dilation (in cm): 1 Effacement (%): 50 Station: positive: -3 Cervical Position: positive: Midposition - Speculum Exam Speculum Exam Performed: positive: No Plan for Labor - Plan For Labor I expect patient to be DC'd or transferred within 96 hours.: Yes Plan for Labor: Krys is a 25yo @ 39.2wks gestation by LMP c/w 6.3wk U/S who presents to [facility] for pre-induction cervical ripening with misoprostol. She denies vaginal bleeding or leakage of fluid. She reports intermittent, mild contr actions which she occasionally rates 5/10 pain but denies consistent discomfort associated with her intermittent abdominal tightening. She reports +FM. She presented yesterday to receive 1 dose of 50mcg BC misoprostol for outpatient pre-induction cervical ripening and was then released home with precautions. She presents today with her partner Teja. She has been a patient of [facility] since her transfer of care from [facility] at 16wks gestation. She has received consistent care through the duration of her which has remained uncomplicated. She will be placed in observation status on [facility] at this time for continued pre-induction cervical ripening. Medications: PNV; Mg supplement Allergies: NKDA OB Hx: G1: Current PMHx: no significant Surgical Hx: [place] teeth removal (2019) Social Hx: Never smoker. No ETOH or IVDA. Family Hx: MGM-Cancer; Diabetes - MGF; CVD - MGM; HTN- MGF course: Initial U/S: @ 6.3wks c/w LMP dating O pos/Rubella immune VZV: non-immune- Varicella Genetic testing: CF negative; Serum integrated - neg FAS: FAS 01/14/2020 posterior placenta, no previa. IGNACIA WNL. Size c/w dating. FAS WNL with the exception of intracardiac echogenic focus. Poor visualization of face and nuchal region. F/u ordered. f/u: WNL. growth- wnl (no efw reported) IOL 05/27/2019 at 0800 Glucola -1 hour elevated (156); 3hr GTT WNL (80, 161,129, 120) Influenza: 01/13/2020 TDAP 03/12/2020 GBS at 36.4wks - NEG HSV: denies in self and partner Breast pump Rx provided MOD: Anticipate ; partner Teja; baby BOY: Carlos; desires epidural for pain management Elective IOL on 05/26 at 0800 pp contraception: POPs pap: 2019 WNL per pt Physical Exam: Normocephalic, atraumatic Heart RRR w/o M/G/R Lungs CTAB Abdomen gravid, soft, nontender EFW 3600g FHR baseline 130, moderate variability, + accels, no decels Contractions palpate mild, intermittently SVE 1/50/-3, posterior, medium consistency. Vertex. Membranes intact. Bilateral LE's trace edema. Mood is good. Assessment: 23yo @ 39.2wks gestation by LMP c/w 6.3wks U/S Elective IOL with pre-induction cervical ripening GBS neg FHR Category I Plan: Place pt in observation status. Continuous monitoring. Encouraged ambulation and position changes. Jacuzzi PRN. Nitrous oxide PRN. Anticipate . Pt verbalized understanding and agrees to above plan. She denies further questions or concerns at this time.
[2020-05-26] MEDS: miSOPROStoL 100 MCG TABLET BC SCH ×4 (09:40→20:14)
[2020-05-26] MEDS: LACTATED RINGERS 1,000 ML IV SCH (13:45)
[2020-05-26] MEDS ORDERED: SODIUM CHLORIDE FLUSH 0.9% 10 ML SYRINGE IVP SCH (17:00)
[2020-05-26] MEDS ORDERED: ZOLPIDEM 5 MG TABLET PO PRN (18:40)
[2020-05-27] MEDS: miSOPROStoL 100 MCG TABLET BC SCH (00:32)
[2020-05-27] MEDS ORDERED: ROPIVACAINE 0.2% 200 MG/100 ML BAG EP ONE (03:29)
[2020-05-27] MEDS ORDERED: diphenhydrAMINE INJ 50 MG/ML VIAL IVP PRN (04:19)
[2020-05-27] MEDS ORDERED: ONDANSETRON 4 MG/2 ML VIAL IVP PRN (04:19)
[2020-05-27] MEDS ORDERED: METOCLOPRAMIDE 10 MG/2 ML VIAL IVP PRN (04:19)
[2020-05-27] MEDS ORDERED: NALOXONE 0.4 MG/ML VIAL IVP PRN (04:19)
[2020-05-27] MEDS ORDERED: ePHEDrine 50 MG/ML VIAL IVP PRN (04:19)
[2020-05-27] MEDS ORDERED: NALBUPHINE 10 MG/ML AMP IVP PRN (04:19)
--- NOTE | 2020-05-27 04:24 | ANESTHESIA ---
Pre-Anesthesia VS, & Labs - Diagnosis IUP, term labor - Procedure epidural for Vital Signs: Temp Pulse Resp BP Pulse Ox 36.6 C 05/26/20 08:43 Height: 5 ft 6 in Weight (kg): 82.372 kg Body Mass Index: 29.2 BMI Classification: Overweight - NPO >8 hours - Is Patient ?: Yes - Lab Results Lab results reviewed: Yes Home Medications and Allergies Active Medications Carboprost Tromethamine (Carboprost Tromethamine 250 Mcg/Ml Amp) 250 mcg IM Q15M PRN PRN Reason: Step 4: Hemorrhage protocol Stop: 05/31/20 09:11 Oxytocin/Sodium Chloride (Pitocin/Sodium Chloride) 500 mls @ 999 mls/hr IV PRN PRN; Protocol PRN Reason: POST- HEMORR PREVENTION Stop: 05/31/20 09:11 Tranexamic Acid (Tranexamic 1,000 Mg/100ml-Nacl) 1,000 mg in 100 mls @ 600 mls/hr IV .ONCE PRN PRN Reason: EBL >1200mL and within 3hr Stop: 05/31/20 09:11 Lactated Ringer's (Lr) 1,000 mls @ 100 mls/hr IV .Q10H MARIVEL Last Infusion: 05/26/20 14:06 Dose: 0 mls/hr Documented by: Lidocaine HCl (Lidocaine-Mpf 1% 30 Ml Vial) 30 ml ID .ONCE PRN PRN Reason: PERINEAL REPAIR Stop: 05/31/20 09:11 Methylergonovine Maleate (Methylergonovine 0.2 Mg/Ml Vial) 0.2 mg IM .ONCE PRN PRN Reason: Step 2: Hemorrhage protocol Stop: 05/31/20 09:11 Misoprostol (Misoprostol 200 Mcg Tablet) 800 mcg BC .ONCE PRN PRN Reason: Step 3: Hemorrhage protocol Stop: 05/31/20 09:11 Misoprostol (Misoprostol 100 Mcg Tablet) 50 mcg BC Q4HR MARIVEL Last Admin: 05/27/20 00:32 Dose: 50 mcg Documented by: Ondansetron HCl (Ondansetron 4 Mg/2 Ml Vial) 4 mg IVP Q4HR PRN PRN Reason: Nausea / Vomiting Oxytocin (Oxytocin 10 Unit/Ml Vial) 10 unit IM .ONCE PRN PRN Reason: Step one: If no IV access Stop: 05/31/20 09:11 Sodium Chloride (Sodium Chloride Flush 0.9% 10 Ml Syringe) 10 ml IVP 0100,0900,1700 MARIVEL Last Admin: 05/26/20 08:33 Dose: 10 ml Documented by: Sodium Chloride (Sodium Chloride Flush 0.9% 10 Ml Syringe) 10 ml IVP PRN PRN PRN Reason: NEEDED PER PROVIDER ORDERS Last Admin: 05/26/20 13:44 Dose: 10 ml Documented by: Zolpidem Tartrate (Zolpidem 5 Mg Tablet) 5 mg PO QPM PRN PRN Reason: Insomnia Allergies/Adverse Reactions: Allergies Allergy/AdvReac Type Severity Reaction Status Date / Time No Known Drug Allergies Allergy Verified 11/05/19 20:12 Anes History & Medical History - Anesthetic History Anesthesia Complications: reports: No previous complications Family history of Anesthesia Complications: Denies Family history of Malignant Hyperthermia: Denies - Medical History Cardiovascular: reports: None Pulmonary: reports: None Gastrointestinal: reports: None Urinary: reports: None Neuro: reports: Headaches, Migraines Musculoskeletal: reports: None Endocrine/Autoimmune: reports: None Blood Disorders: reports: None Skin: reports: None Smoking Status: Never smoker - Surgical History Other Past Surgical History: wisdom teeth extraction - Obstetrical History : 1 Parity: 0 Events: reports: None Complications: reports: None Exam General: Alert, Oriented x3, Cooperative Dental: WNL Mouth Openin Fingerbreadth Neck Mobility: Normal Mallampati classification: II Thyromental Distance: 4-6 cm Respiratory: No respiratory distress Cardiovascular: Regular rate Neurological: Normal speech Mental/Cognitive Status: Alert/Oriented X3, Normal for patient Cognitive Status: Within normal limits Plan Anesthesia Type: Epidural Consent for Procedure(s) Verified and Reviewed: Yes Code Status: Attempt Resuscitation ASA classification: 2-Mild systemic disease Is this case an emergency?: No
[2020-05-27] MEDS: LACTATED RINGERS 1,000 ML IV SCH ×2 (07:19→11:37)
--- NOTE | 2020-05-27 07:49 | PROVIDER PROGRESS NOTE ---
Labor Progress Note - Uterine Monitoring Uterine Monitoring Mode: positive: External toco Contraction Intensity: positive: Moderate Uterine Resting Tone: positive: Soft - Monitoring Monitor Mode: positive: External ultrasound Heart Rate Variability: positive: Moderate (6-25 bmp) Accelerations: positive: Present, 15x15 Decelerations: positive: None Strip Review: positive: Category I - Vaginal Exam Dilation (in cm): 3 Effacement (%): 75 Station: -3 Cervical Position: Posterior - Labor Progress Note Labor Progress Note/Additional Text: S: Feeling comfortable with epidural. Pt states she felt the epidural placement was very uncomfortable and she cried during placement. She is happy to be comfortable with epidural now. States she was able to get a little rest last night. Her partner slept well. Her mood is good and she denies questions or concerns at this time. O: FHR baseline 135, moderate variability, + accels, potentially one subtle late deceleration - overall reassuring Contractions palpate moderate intermittently with occasional coupling and tripling of contractions SVE 3/75/-3, posterior. Vertex. SROM occurred at 0208 S/p 4 doses of 50mcg BC misoprostol A: 25yo @ 39.3wks gestation SROM x 5.5hrs Elective IOL FHR Category II - overall reassuring GBS neg P: Continuous monitoring Initiate pitocin with titration per protocol Encouraged use of peanut ball in bed. Maintain epidural for pain management. Anticipate . Pt and partner verbalized understanding and agree to above plan. They deny further questions or concerns at this time.
[2020-05-27] MEDS ORDERED: OXYTOCIN/SODIUM CHLORIDE 500 ML IV SCH (08:00)
[2020-05-27] MEDS: ROPIVACAINE 0.2% 200 MG/100 ML BAG EP PRN ×2 (09:17→15:48)
--- NOTE | 2020-05-27 13:39 | PROVIDER PROGRESS NOTE ---
Labor Progress Note - Uterine Monitoring Uterine Monitoring Mode: positive: External toco Contraction Frequency (min/apart): 2-5 Contraction Intensity: positive: Moderate Uterine Resting Tone: positive: Soft - Monitoring Monitor Mode: positive: External ultrasound Heart Rate Baseline: 135 Heart Rate Variability: positive: Moderate (6-25 bmp) Accelerations: positive: Present, 15x15 Decelerations: positive: None Strip Review: positive: Category I - Vaginal Exam Dilation (in cm): 6 Effacement (%): 80 Station: -1 Cervical Position: Midposition - Labor Progress Note Labor Progress Note/Additional Text: S: Feeling comfortable in bed with epidural sitting in high fowlers . Starting t o feel slightly increased pressured. Teja is supportive at the bedside. Pt states she is doing good and feeling well. O: FHR baseline 135, moderate variability, + accels, no decels Contractions palpate moderate every 2-5 minutes with soft resting tone SVE 6/80/-1, midposition. Vertex. Pitocin @ 6mU/mL SROM x 11.5hrs A: 25yo @ 39.3wks gestation by LMP c/w 6.3wk U/S Elective IOL Active labor FHR Category I GBS neg P: Continue pitocin with titration per protocol for IOL. Continuous monitoring. Encouraged frequent position changes in bed and reviewed with labor RN. Anticipate . Pt verbalized understanding and agrees to above plan. She denies further questions or concerns at this time.
[2020-05-27] MEDS ORDERED: fentaNYL 100 MCG/2 ML VIAL ONE (14:31)
[2020-05-27] MEDS ORDERED: LIDOCAINE-PF 2% 10 ML AMP SUBQ ONE (14:32)
--- NOTE | 2020-05-27 15:30 | PROVIDER PROGRESS NOTE ---
Labor Progress Note - Uterine Monitoring Uterine Monitoring Mode: positive: External toco Contraction Frequency (min/apart): 2-4 Contraction Intensity: positive: Strong Uterine Resting Tone: positive: Soft - Monitoring Monitor Mode: positive: External ultrasound Heart Rate Baseline: 135 Heart Rate Variability: positive: Moderate (6-25 bmp) Accelerations: positive: Present, 15x15 Decelerations: positive: None Strip Review: positive: Category I - Vaginal Exam Dilation (in cm): 9 Effacement (%): 100 Station: 0 Cervical Position: Anterior - Labor Progress Note Labor Progress Note/Additional Text: S: Pt tearful due to increased pressure in her lower back and buttocks. Anesthesia provider bolused epidural and pt states it has helped tremendously. Still continued to feel pressure. Has helped to reposition her to her right side. Teja supportive at the bedside. O: FHR baseline 135, moderate variability, + accels, no decels Contractions palpate strong every 2-4 minutes with soft resting tone SVE 9/100/0. Vertex. Pitocin @ 6mU/mL SROM x 13.5hrs A: 25yo @ 39.3wks gestation Active labor Elective IOL FHR Category I P: Continuous monitoring Continue pitocin with titration per protocol Position changes in bed as tolerated by pt Anticipate .
--- NOTE | 2020-05-27 16:09 | CONSULTATION NOTE ---
Consultation Report: Called for epidural bolus as patient having back pain, perineal pain. Bolus of 2% lidocaine given and Fentanyl 100mcg via epidural catheter. PCEA set up with 6cc bolus q 10 mins. Asiya Callaway CNM in and patient completely dilated, patient now improved pain.
[2020-05-27] MEDS ORDERED: WITCH HAZEL/GLYCERIN 1 PAD TOP PRN (18:16)
[2020-05-27] MEDS ORDERED: HYDROCORTISONE 1% CREAM 28 GM TUBE PR PRN (18:16)
--- NOTE | 2020-05-27 18:24 | DELIVERY NOTE ---
Delivery Note - Labor Labor: positive: Induced by oxytocin - Infant Delivery Method Delivery Method: positive: Spontaneous vaginal delivery - Cervical Ripening Method Cervical Ripening Method: positive: Misoprostil - Presentation Presentation: positive: Vertex, LEFTY - right occiput anterior - Nuchal Cord Nuchal Cord: positive: None - Amniotic Fluid Description Amniotic Fluid Description: positive: Clear - Episiotomy Type Episiotomy Type: positive: None - Laceration Laceration: positive: None - Delivery Outcome Delivery Outcome: positive: Livebirth - [place]: positive: Placed in direct skin contact with mother, Stimulated, Warmed, [place] used sex: positive: Male - Cord Cord: positive: 3 vessels - Placenta Placenta: positive: Intact, Spontaneous - Estimated Blood Loss Estimated Blood Loss (in cc): 300 - Post Delivery Events Post Delivery Events: positive: No post delivery events - Delivery Comments (Free Text/Narrative) Delivery Comments (Free Text/Narrative): Labor: This 25yo @ 39.3wks gestation presented on 05/26/2020 for elective IOL. SVE was deferred on admission. She received 4 doses of 50mcg BC misoprostol for pre-induction cervical ripening. SROM occurred at 0208 and was noted to be a moderate amount of clear fluid. Epidural placed per maternal request. Pitocin initiated for labor augmentation for a maximum infusion rate of 6mU/mL. FHR pattern demonstrated Category I pattern throughout labor. Normal labor course. Pt progressed to c/c/0 and onset of active pushing occurred at 1539. : Normal of viable male infant on 05/27/2020 @ 1757. No nuchal cord. The was placed on maternal abdomen, stimulated, dried, and placed skin to skin. 's were 8/9 at 1 and 5 min respectively. Pitocin administered via IV for hemostasis. The umbilical cord was allowed to stop pulsating at which time it was doubly clamped by CNM and cut by FOB. 3VC. Cord blood was obtained. Fundal massage and gentle cord traction applied for active management of the third stage. Placenta delivered spontaneously and intact at 1801. EBL 300mL. Fourth stage: Uterine fundus firm and there is no excessive bleeding. The perineum, vagina, and cervix were inspected and found to be intact. Skin to skin contact initiated. Family bonding well. Both mother and baby were left in stable condition.
[2020-05-27] MEDS ORDERED: LACTATED RINGERS 1,000 ML IV SCH (19:00)
[2020-05-27] MEDS: ACETAMINOPHEN 500 MG TABLET PO SCH (21:02)
[2020-05-27] MEDS: IBUPROFEN 800 MG TABLET PO SCH (21:02)
[2020-05-28] MEDS: IBUPROFEN 800 MG TABLET PO SCH ×3 (03:09→16:27)
--- NOTE | 2020-05-28 10:24 | PROVIDER PROGRESS NOTE ---
Subjective - Subjective Subjective: S: Bonding well with baby. with little difficulty. Experiencing some discomfort with nursing despite a good latch. Has felt the nursing support has been helpful. Bleeding decreased and is light. Pain well controlled with oral medications. Feeling some discomfort at the site of epidural but denies pain otherwise. Mood is good. supportive at the bedside. O: BP 134/78, T 36.6, RR 16, HR 80 Heart RRR w/o M/G/R, lungs CTAB, abdomen soft and nontender, fundus firm and U- 1, perineum intact, light lochia rubra, bilateral LE's no edema. A: 25yo -->P1 PPD#1 s/p TSVD viable male Intact perineum P: Continue routine pp care and medications. Work with nurse on today. Encouraged heat pad to epidural site for pain management PRN. Evaluate for discharge home tomorrow. Pt verbalized understanding and agrees to above plan. She denies further questions or concerns at this time. Objective - Vital Signs/Intake & Output Vital Signs: Vital Signs x48h Temp Pulse Resp BP Pulse Ox 05/28/20 07:57 36.6 C 80 16 134/78 H 100 05/28/20 03:10 85 18 122/66 99 Intake & Output: Intake & Output 05/25/20 05/26/20 05/27/20 05/28/20 23:59 23:59 23:59 23:59 Intake Total 87.5 1915.666 Output Total 1550 Balance 87.5 365.666
[2020-05-28] MEDS: ACETAMINOPHEN 500 MG TABLET PO SCH ×2 (10:38→18:54)
[2020-05-28] MEDS: DOCUSATE SODIUM 100 MG CAPSULE PO SCH (22:02)
[2020-05-28] MEDS: miSOPROStoL 100 MCG TABLET BC SCH (22:03)
[2020-05-29] MEDS: IBUPROFEN 800 MG TABLET PO SCH ×2 (02:38→08:25)
[2020-05-29] MEDS: ACETAMINOPHEN 500 MG TABLET PO SCH ×2 (02:39→10:30)
[2020-05-29 08:13] VITALS: BP 127/81
[2020-05-29] MEDS: DOCUSATE SODIUM 100 MG CAPSULE PO SCH (08:26)
--- NOTE | 2020-05-29 09:21 | PROVIDER PROGRESS NOTE ---
Subjective - Subjective Subjective: FINAL PROGRESS NOTE: S: Bonding well with baby. without difficulty. Pain well controlled with oral medications. Bleeding decreased and is light. Mood is good. supportive at the bedside. They are excited to be able to go home today. O: BP 127/81, T 37.1, RR 18, HR 90 Heart RRR w/o M/G/R, lungs CTAB, abdomen soft and nontender with fundus firm and U-2, perineum intact, light lochia rubra, bilateral LE's no edema. A: 25yo -->P1 PPD#2 s/p TSVD viable male infant P: Reviewed pp self care and warning s/sx and when to present. Advised continuation of PNV while . Encouraged continuation of ibuprofen and tylenol OTC as needed for pain management. F/u with myself at [facility] in 1 week or sooner PRN. Pt verbalized understanding and agrees to above plan. She denies further questions or concerns at this time. Objective - Vital Signs/Intake & Output Vital Signs: Vital Signs x48h Temp Pulse Resp BP Pulse Ox 05/29/20 08:00 37.1 C 90 18 127/81 H 99 05/29/20 01:33 36.4 C L 80 16 121/71 100 Intake & Output: Intake & Output 05/26/20 05/27/20 05/28/20 05/29/20 23:59 23:59 23:59 23:59 Intake Total 87.5 2973.666 Output Total 1550 Balance 87.5 1423.666
--- NOTE | 2020-05-29 09:22 | Discharge Plan ---
Discharge Plan Problem Reviewed?: Yes Disposition: Home, Self Care Condition: Good Diet: Regular Activity Restrictions: No Restrictions Shower Restrictions: No Driving Restrictions: No Weight Bearing: Full Weight No Smoking: If you smoke, Please STOP! Call for help. Follow-up with: Catalina Callaway CNM, ARNP [Provider Admit Priv/Credential] -
--- NOTE | 2020-05-29 10:59 | DISCHARGE SUMMARY ---
Physician: MADHVA Valles DATE OF ADMISSION: 05/27/2020 DATE OF DISCHARGE: 05/29/2020 DIAGNOSES ON ADMISSION: 1. A 25-year-old, G1, P0 at 39.2 weeks gestation. 2. Elective induction of labor with preinduction cervical ripening. 3. Group B Streptococcus negative. 4. heart rate category 1. DIAGNOSES ON DISCHARGE: 1. A 25-year-old, G1, P1-0-0-1, status post spontaneous vaginal delivery on 05/27/2020. 2. . 3. Normal recovery. HISTORY OF PRESENT ILLNESS: She is a patient of [facility], who presented on 2020, for elective induction of labor. She received 4 doses of 50 mcg buccal misoprostol for preindu ction cervical ripening. Spontaneous rupture of membranes occurred at 0208 and was noted to be a mod erate amount of clear fluid. Epidural placed per maternal request. The patient was augmented with P itocin for a maximum infusion rate of 6 milliunits per mL. She progressed to spontaneously deliver a viable male on 05/27/2020, at 1757. Apgars were 8 and 9 at 1 and 5 minutes respectively. EB L 300 mL. The perineum, vagina and cervix were inspected and found to be intact. She has been doing well in her course. She is ambulating and tolerating a regular diet. She is urinating without difficulty and her lochia is normal. Her pain is well controlled with oral medications. She will be discharged home today on day #2 with instructions to continue ta lukasz her vitamin while and to continue taking ibuprofen and Tylenol over-the-c ounter as needed for pain management. She intends to followup with myself at [facility] in 1 week for routine visit or sooner if needed. She has been given precautions to c all if she has any worsening fevers, chills, abdominal pain, increased bleeding or foul-smelling vagi nal lochia. TD: 05/29/2020 10:58
--- NOTE | 2020-05-29 11:20 | Labor Flowsheet ---
Labor Flowsheet Datetime Report Generated by CPN: 05/29/2020 11:19 Datetime: 05/29/2020 07:35 VITAL SIGNS NBP Sys/Michelle/Mean (mmHg): 127 : 81 : 92 Pulse: 90 Datetime: 05/29/2020 01:34 SpO2 (%): 100 Datetime: 05/27/2020 18:45 Temperature (C): 37.5 Datetime: 05/27/2020 18:19 Temperature Route: Oral Datetime: 05/27/2020 18:09 Stage of : Datetime: 05/27/2020 18:08 Membranes Ruptured Date/Time: 05/27/2020 02:08 Datetime: 05/27/2020 18:03 Medication Comments: pitocin @ 999 Datetime: 05/27/2020 18:01 Stage 2 Comments: placenta LaborFlag: Labor Datetime: 05/27/2020 17:30 Contraction Comments: coupling Datetime: 05/27/2020 16:20 I/O Interventions: Nielson Discontinued Patient Care Comments: 300ml UOP Datetime: 05/27/2020 15:39 VAGINAL EXAM Dilatation (cm): 10.0 Effacement (%): 100 Exam by: CNM Cesia Vaginal Exam Comments: Anterior lip reduced with pushing STAGE 2 Pushing: Coached on Pushing Pushing Position: Pushing with Contractions; Pushing Lithotomy Pushing Progress: Descent with Pushing Datetime: 05/27/2020 15:33 Patient Position/Activity: Semi-Fowlers; Supine Datetime: 05/27/2020 15:29 Pain Assessment Comments: Pt feeling increased pressure in bottom, requesting CNM Datetime: 05/27/2020 15:00 UTERINE ACTIVITY Monitor Mode: External Frequency (min): 1-2.5 Quality: Mild Duration (sec): 60-90 Pattern: Normal: <= 5 Contractions in 10 Minutes Resting Tone (Palpate): Relaxed ASSESSMENT A Monitor Mode: External US FHR Baseline Rate : 125 FHR Baseline Changes: No Baseline Change Variability: Moderate 6-25 bpm Accelerations: 15X15 Decelerations: None Category: Category I Datetime: 05/27/2020 14:47 Provider Notified (Name): CNM Cesia Communication Comments: Notified provider of SVE, pt c/o continued LBP. Datetime: 05/27/2020 14:46 Pain Presence: Constant Pain Type: Pressure Pain Location: Back Pain Coping: Crying Datetime: 05/27/2020 14:45 Station: 0 Datetime: 05/27/2020 14:34 Epidural Procedure Other: Redose Anesthesia Comments: 100mcg fentanyl per epidural by EXPLOSIVE EXPERT Datetime: 05/27/2020 14:21 COMMUNICATION Communication: Call/Page Placed to Provider Notification Reason: Pain Datetime: 05/27/2020 14:15 Monitor Interventions for FHR: Ultrasound Adjusted Comments: coincidence present d/t maternal positioning. RN at bedside Datetime: 05/27/2020 11:03 PATIENT CARE IV/Blood Work: IV Bolus Started Datetime: 05/27/2020 10:57 Provider Reviewed Strip: Yes Datetime: 05/27/2020 09:24 Monitor Interventions for UA: [place] Adjusted Datetime: 05/27/2020 09:22 MEDICATIONS Pitocin (milliunits): Increased to @ 4 Datetime: 05/27/2020 08:41 Pitocin Checklist: At Least 1 Acceleration of 15 bpm x 15 Seconds in 30 Minutes or Adequate Variabi lity; No More than 1 Late Deceleration Occurred in Past 30 Minutes; No More than 2 Variable Decelerat ions > 60 Seconds in Duration and decreasing >60 bpm in 30 minutes; No More than 5 Uterine Contractio ns in 10 Minutes for any 20 Minute Interval; Uterus Palpates Soft between Contractions Datetime: 05/27/2020 07:27 PAIN Pain Scale: 0 Pain Relief Measures: Epidural Given Anesthesia Level Check: T9 Datetime: 05/27/2020 07:20 MATERNAL ASSESSMENT Level of Consciousness: Alert DTR's/Clonus: DTRs Absent Headache: Denies Breath Sounds, Left: Clear and Equal Breath Sounds, Right: Clear and Equal Nausea/Vomiting: Denies RUQ Epigastric Pain: Denies Datetime: 05/27/2020 07:03 TEACHING Instructional Method: Verbal Plan of Care: Plan of Care Discussed Labor/Induction: Labor Stages; Cervical Ripening; Induction Pain Management: Pain Scale/Goals Datetime: 05/27/2020 07:01 Hygiene: Little Care Datetime: 05/27/2020 06:58 Respirations: 18 Datetime: 05/27/2020 06:30 Oxygen Method: Room Air Datetime: 05/27/2020 03:51 PROCEDURE TIME OUT Procedure Verify: Correct Patient Identity; Correct Side and Site are Marked; Accurate Procedure Co nsent Form; Agreement on Procedure to be Done; Safety Precautions Based on Patient History or Medicat ion Use ANESTHESIA Anesthesia Plans: Epidural Epidural Positioning: Sitting Epidural Procedure: Test Dose Datetime: 05/27/2020 03:03 Vaginal Bleeding: None Cervix, Consistency: Soft Cervix, Position: Midposition Datetime: 05/27/2020 03:00 Comfort Measures: Breathing/Relaxation Datetime: 05/27/2020 02:08 Membranes Rupture Method: Spontaneous Amniotic Fluid Color: Clear Amniotic Fluid Amount: Copious Amniotic Fluid Odor: Normal Datetime: 05/27/2020 00:32 Cervical Ripening Agents: Cytotec @ Datetime: 05/26/2020 14:14 Actions for Decelerations: Hands and Knees Datetime: 05/26/2020 13:37 Medications: Cervical Ripening PTL/PROM: Hydration; Signs/Symptoms of Infection Teaching Comments: discuss hydration, FHR, and uterine activity Datetime: 05/26/2020 11:35 Membrane Status: Intact
== END 2020-05-29 11:00 | disposition home or self-care (01) | DRG 807 ==
LOC: WFO 08:13 → FBP 08:27 → WFO 09:09 → FBP 09:10 → OBSVTOIN 05-27 02:27
PROVIDERS: ADMIT Nurse Practitioner Obstetrics & Gynecology; ATTEND Nurse Practitioner Obstetrics & Gynecology
PROC: 10E0XZZ Delivery of Products of Conception, External Approach (ICD-10-PCS; principal; 2020-05-27)
DX: O80 Encounter for full-term uncomplicated delivery (principal); Z37.0 Single live birth; Z3A.39 39 weeks gestation of pregnancy
CPT/HCPCS: A9270; G0378; J7120

== ENCOUNTER 2021-03-03 15:04 | Emergency (ER) | payer OTHER ==
[2021-03-03 15:18] VITALS: BP 130/80
[2021-03-03 15:44] LABS: BASOPHILS # (AUTO) 0.1 10^3/uL (0.0-0.1); BASOPHILS % (AUTO) 0.9 %; EOSINOPHILS # (AUTO) 0.1 10^3/uL (0.0-0.7); EOSINOPHILS % (AUTO) 0.9 %; HCT - HEMATOCRIT 43.4 % (37.0-47.0); HGB - HEMOGLOBIN 14.5 g/dL (12.0-16.0); LYMPHOCYTES # (AUTO) 3.4 10^3/uL (1.5-3.5); LYMPHOCYTES % (AUTO) 38.7 %; MEAN CORPUSCULAR HEMOGLOBIN 29.4 pg (27.0-31.0); MEAN CORPUSCULAR HGB CONC 33.4 g/dL (32.0-36.0); MEAN PLATELET VOLUME 9.8 fL (7.9-10.8); NEUTROPHILS # (AUTO) 4.2 10^3/uL (1.5-6.6); NEUTROPHILS % (AUTO) 48.3 %; PLT - PLATELET COUNT 327 10^3/uL (130-450); RED BLOOD COUNT 4.93 10^6/uL (4.20-5.40); RED CELL DISTRIBUTION WIDTH 13.2 % (12.0-15.0); WHITE BLOOD COUNT 8.7 x10^3/uL (4.8-10.8)
--- NOTE | 2021-03-03 15:46 | ED Physician Documentation ---
PD HPI ABD PAIN - Stated complaint Stated Complaint: LOW ABD PAIN - Chief complaint Chief Complaint: Abd Pain - History obtained from History obtained from: Patient - History of Present Illness Timing - onset: How many days ago (1-2 days of some lower abd/pelvic cramping, that became abruptly severe 2 hours ago. It is improving enroute.) Timing - details: Abrupt onset, Now resolved (not completely but quite a bit improved.) Quality: Sharp, Pain Location: Suprapubic Radiation: Lower back. No: Left flank, Right flank Improved by: Meds (took Ibuprofen prior to arrival.) Associated symptoms: Nausea. No: Fever, Vomiting, Diarrhea, Dysuria, Vaginal b leeding Similar symptoms before: Has not had sx before Recently seen: Not recently seen Review of Systems Constitutional: denies: Fever, Chills Nose: denies: Rhinorrhea / runny nose, Congestion Throat: denies: Sore throat Respiratory: denies: Cough GI: reports: Abdominal Pain, Nausea. denies: Vomiting, Constipation, Diarrhea : reports: Control (she states very regular on taking her OCPs.). 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 : None HEENT: None Psych: None Musculoskeletal: None Derm: None - Past Surgical History Past Surgical History: No - Present Medications Home Medications: Ambulatory Orders Medication Instructions Recorded Confirmed Metoclopramide [Reglan] 10 mg PO Q6H PRN #20 tablet 10/10/19 Prochlorperazine [Compazine] 5 mg PO BID PRN #5 tablet 11/05/19 - Allergies Allergies/Adverse Reactions: Allergies Allergy/AdvReac Type Severity Reaction Status Date / Time No Known Drug Allergies Allergy Verified 03/03/21 15:18 - Social History Does the pt smoke?: No Smoking Status: Never smoker Does the pt drink ETOH?: No Does the pt have substance abuse?: No - Immunizations Immunizations are current?: Yes PD ED PE NORMAL - Vitals Vital signs reviewed: Yes - General General: Alert and oriented X 3, No acute distress, Well developed/nourished - Cardiac Cardiac: RRR, No murmur - Respiratory Respiratory: Clear bilaterally - Abdomen Abdomen: Normal bowel sounds, Soft, Non distended, No organomegaly, Other (tender midline suprapubic area mostly, with tender both left and right as well. No percussion nor rebound tenderness. ) Results - Vitals Vitals: Vital Signs - 24 hr 03/03/21 15:15 Temperature 36 C L Heart Rate 81 Respiratory 16 Rate Blood Pressure 130/80 O2 Saturation 99 Oxygen O2 Source Room air - Labs Labs: Laboratory Tests 03/03/21 03/03/21 03/03/21 15:40 15:40 16:54 WBC 8.7 RBC 4.93 Hgb 14.5 Hct 43.4 MCV 88.0 MCH 29.4 MCHC 33.4 RDW 13.2 Plt Count 327 MPV 9.8 Neut # (Auto) 4.2 Lymph # (Auto) 3.4 [place] # (Auto) 1.0 Eos # (Auto) 0.1 Baso # (Auto) 0.1 Absolute Nucleated RBC 0.00 Nucleated RBC % 0.0 Sodium 137 Potassium 3.9 Chloride 102 Carbon Dioxide 24 Anion Gap 11.0 BUN 13 Creatinine 0.6 Estimated GFR (MDRD) 150 Glucose 93 Calcium 9.9 Total Bilirubin 0.5 AST 15 ALT 14 Alkaline Phosphatase 47 Total Protein 7.9 Albumin 4.3 Globulin 3.6 Albumin/Globulin Ratio 1.2 Lipase 29 Urine Color YELLOW Urine Clarity CLEAR Urine pH 7.0 Ur Specific [place] 1.020 Urine Protein NEGATIVE Urine Glucose (UA) NEGATIVE Urine Ketones NEGATIVE Urine Occult Blood NEGATIVE Urine Nitrite NEGATIVE Urine Bilirubin NEGATIVE Urine Urobilinogen 0.2 (NORMAL) Ur Leukocyte Esterase NEGATIVE Ur Microscopic Review NOT INDICATED Urine Culture Comments NOT INDICATED Urine HCG, Qual NEGATIVE - Rads (name of study) pelvic U/S Radiology: Prelim report reviewed (from tech, ovarian cyst hemorrhagic 3 cm size, with some pelvic free fluid. normal ovarian flow. ), See rad report PD MEDICAL DECISION MAKING - ED course Complexity details: reviewed results (U/S showing left hemorrhagic cyst and moderate free fluid per prelim [employer] worksheet. ), considered differential (consider ovarian cyst, kidney stone, UTI. Less likely appy, colitis.), d/w patient Departure - Departure Disposition: Home, Self Care Clinical Impression: Acute pelvic pain, Hemorrhagic cyst of left ovary Condition: Stable Record reviewed to determine appropriate education?: Yes Instructions: ED Cyst Ovarian Follow-Up: STEFFANY DIAZ DO [Primary Care Provider] - Comments: Your ultrasound shows a 2-1/2 x 3 cm (so just over an inch) hemorrhagic cyst on the left ovary with some amount of free fluid in the pelvis. This represents typically abrupt bleeding into the cyst with a partial rupturing of it. This will cause an abrupt pain that tapers off. Typically this will continue tapering down over the next few days. You can use anti-inflammatory such as ibuprofen 400 to 600 mg 3 times a day. To that add Tylenol every 4-6 hours if needed for pain. Follow-up with your primary care for potential repeat ultrasound in a few weeks, in particular if you have any mild on and off pains. Return to the ER if you have significantly worsening pain fever vomiting or other concerns over the next few days. Your urine test is normal without any signs of infection. Your test is negative. Forms: Activity restrictions Discharge Date/Time: 03/03/21 17:42
[2021-03-03 16:00] LABS: ALBUMIN 4.3 g/dL (3.2-5.5); ALBUMIN/GLOBULIN RATIO 1.2 (1.0-2.2); BILIRUBIN,TOTAL 0.5 mg/dL (0.2-1.0); CALCIUM 9.9 mg/dL (8.5-10.3); CREATININE 0.6 mg/dL (0.4-1.0); POTASSIUM 3.9 mmol/L (3.5-5.0); TOTAL PROTEIN 7.9 g/dL (6.7-8.2)
[2021-03-03] MEDS ORDERED: SODIUM CHLORIDE 0.9% 1,000 ML IV STA (16:06)
[2021-03-03] MEDS ORDERED: KETOROLAC 15 MG/ML VIAL IVP STA (16:06)
[2021-03-03 17:08] LABS: BILIRUBIN,URINE NEGATIVE (NEGATIVE); GLUCOSE, URINE (UA) NEGATIVE (NEGATIVE); KETONES,URINE (UA) NEGATIVE (NEGATIVE); LEUKOCYTE ESTERASE, URINE NEGATIVE (NEGATIVE); NITRITE,URINE NEGATIVE (NEGATIVE); OCCULT BLOOD,URINE NEGATIVE (NEGATIVE); PROTEIN,URINE NEGATIVE (NEGATIVE); UROBILINOGEN,URINE 0.2 (NORMAL) E.U./dL (NORMAL)
[2021-03-03 17:11] LABS: CLARITY,URINE CLEAR (CLEAR); HCG UR QUAL NEGATIVE
--- NOTE | 2021-03-03 17:42 | Ultrasound Report ---
PROCEDURE: Pelvic w/Doppler Complete, Ultrasound INDICATIONS: Pelvic pain R TECHNIQUE: Real-time scanning was performed of the pelvic organs, with image documentation. Additional endovagi nal scanning was necessary due to incomplete visualization of the adnexal and endometrial structures by transabdominal scanning. COMPARISON: None. FINDINGS: Small to moderate free fluid noted in the left side of the pelvis Uterus: Uterus is normal in size at 9.0 x 5.0 x 5.4 cm. The endometrium measures 10.8 mm in combine d thickness. Ovaries: Right left ovaries measure 2.5 x 2.1 x 2.5 cm and 5.4 x 2.2 x 24.6 cm respectively. A 3.2 x 2.5 cm hemorrhagic cyst present. Both ovaries have appropriate vascularity without torsion IMPRESSION: 1. Both ovaries have appropriate vascularity without torsion 2. 2.5 cm left ovarian hemorrhagic cyst. Reviewed by: Mack Kay MD on 03/03/2021 4:41 PM AKST Approved by: Mack Kay MD on 03/03/2021 4:41 PM AKST Station ID: [id number]
== END 2021-03-03 17:42 | disposition home or self-care (01) ==
LOC: ED 15:04
DX: N83.202 Unspecified ovarian cyst, left side (principal); R10.2 Pelvic and perineal pain
CPT/HCPCS: 36415; 80053; 81001; 81003; 81025; 83690; 85025; 87086; 93975; 99283; 99284

== ENCOUNTER 2021-04-13 17:27 | Emergency (ER) | payer OTHER ==
--- NOTE | 2021-04-13 18:09 | ED Physician Documentation ---
History of Present Illness - Stated complaint Stated Complaint: LT SIDE PX/CP - Chief complaint Chief Complaint: Abd Pain - History obtained from History obtained from: Patient - History of Present Illness Timing: Today Pain level max: 0 Pain level now: 0 - Additonal information Additional information: Patient is a 26-year-old female who presents to the emergency department with left upper quadrant abdominal pain/chest pain. Occurred earlier today. Nothing made it better or worse. She states that the pain has occurred intermittently for several weeks to months. She states occasionally she feels a sharp pain on the right side of her chest. Occasionally she feels like there is a needle in her kidney. Occasionally feels a needle sensation to the left side of her chest. Currently she is asymptomatic. She states she has been seen several times for this [place] the [employer] [place] with no cause found. She states that there is a family history of heart disease and potentially structural abnormalities of the heart in her family. No family history of young cardiac disease. The cardiac disease is all in her grandparents. Afebrile. No cough. No leg swelling. No recent travel or immobilization. 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 : None HEENT: None Psych: None Musculoskeletal: None Derm: None - Past Surgical History Past Surgical History: No - Present Medications Home Medications: Ambulatory Orders Medication Instructions Recorded Confirmed Metoclopramide [Reglan] 10 mg PO Q6H PRN #20 tablet 10/10/19 Prochlorperazine [Compazine] 5 mg PO BID PRN #5 tablet 11/05/19 - Allergies Allergies/Adverse Reactions: Allergies Allergy/AdvReac Type Severity Reaction Status Date / Time No Known Drug Allergies Allergy Verified 04/13/21 17:39 - Social History Does the pt smoke?: No Smoking Status: Never smoker Does the pt drink ETOH?: No Does the pt have substance abuse?: No - Immunizations Immunizations are current?: Yes PD ED PE NORMAL - Vitals Vital signs reviewed: Yes - General General: Alert and oriented X 3, No acute distress, Well developed/nourished - HEENT HEENT: Moist mucous membranes - Neck Neck: Supple, no meningeal sign - Cardiac Cardiac: RRR, Strong equal pulses - Respiratory Respiratory: No respiratory distress, Clear bilaterally - Abdomen Abdomen: Soft, Non tender, Non distended - Derm Derm: Warm and dry - Extremities Extremities: No edema - Neuro Neuro: Alert and oriented X 3 - Psych Psych: Normal mood, Normal affect Results - Vitals Vitals: Vital Signs - 24 hr 04/13/21 04/13/21 17:35 19:34 Temperature 36.3 C L 36.4 C L Heart Rate 94 78 Respiratory 16 16 Rate Blood Pressure 142/91 H 118/75 O2 Saturation 100 100 Oxygen O2 Source Room air - EKG (time done) 1742 Rate: Rate (enter#) (86) Rhythm: NSR [place]: Normal Intervals: Normal SD QRS: Normal Ischemia: Normal ST segments - Labs Labs: Laboratory Tests 04/13/21 04/13/21 04/13/21 18:10 18:10 18:44 WBC 9.6 RBC 4.79 Hgb 14.3 Hct 42.6 MCV 88.9 MCH 29.9 MCHC 33.6 RDW 13.8 Plt Count 210 MPV 10.3 Neut # (Auto) 5.1 Lymph # (Auto) 3.5 [place] # (Auto) 0.9 Eos # (Auto) 0.1 Baso # (Auto) 0.1 Absolute Nucleated RBC 0.00 Nucleated RBC % 0.0 D-Dimer Sodium 136 Potassium 4.0 Chloride 104 Carbon Dioxide 24 Anion Gap 8.0 BUN 14 Creatinine 0.8 Estimated GFR (MDRD) 107 Glucose 92 Calcium 9.2 Total Bilirubin 0.6 AST 12 ALT 12 Alkaline Phosphatase 41 L Troponin I High Sens < 2.3 L Total Protein 7.0 Albumin 4.1 Globulin 2.9 Albumin/Globulin Ratio 1.4 Lipase 28 04/13/21 18:44 WBC RBC Hgb Hct MCV MCH MCHC RDW Plt Count MPV Neut # (Auto) Lymph # (Auto) [place] # (Auto) Eos # (Auto) Baso # (Auto) Absolute Nucleated RBC Nucleated RBC % D-Dimer 213.2 Sodium Potassium Chloride Carbon Dioxide Anion Gap BUN Creatinine Estimated GFR (MDRD) Glucose Calcium Total Bilirubin AST ALT Alkaline Phosphatase Troponin I High Sens Total Protein Albumin Globulin Albumin/Globulin Ratio Lipase - Rads (name of study) cxr Radiology: Final report received, EMP read contemporaneously, See rad report (no acute disease) PD MEDICAL DECISION MAKING - ED course Complexity details: reviewed results, re-evaluated patient, considered differential (No ST elevation NM, no aortic dissection, no PE, no tension pneumothorax, no aortic aneurysm), d/w patient ED course: 26-year-old female presents to the emergency department with atypical chest pain. No evidence of pulmonary embolus, acute coronary syndrome, aortic di ssection. Patient is asymptomatic here. No acute findings on laboratory testing, x-ray or EKG. We will have her follow-up with her doctor for further care. Normal physical exam. No murmur. Patient counseled regarding signs and symptoms for which I believe and urgent re-evaluation would be necessary. Patient with good understanding of and agreement to plan and is comfortable going home at this time This document was made in part using voice recognition software. While efforts are made to proofread this document, sound alike and grammatical errors may occur. Departure - Departure Disposition: 01 Home, Self Care Clinical Impression: Chest pain Qualifiers: Chest pain type: unspecified Qualified Code(s): R07.9 - Chest pain, unspecified Condition: Good Instructions: ED Chest Pain Atypical Unkn Cause Follow-Up: STEFFANY DIAZ DO [Primary Care Provider] - Within 1 week Comments: The cause of your chest pain is unclear today. This could be due to something such as gastritis or esophageal reflux. They may want to perform an echocardiogram to evaluate your heart structurally as well as do an endoscopy to look for any history of reflux or ulcers. Please return if you worsen. [place] Discharge Date/Time: 04/13/21 19:36
--- NOTE | 2021-04-13 18:16 | XRAY Report ---
PROCEDURE: Chest 1 View X-Ray INDICATIONS: Chest Pain TECHNIQUE: One view of the chest was acquired. COMPARISON: None FINDINGS: Surgical changes and devices: None. Lungs and pleura: No pleural effusions or pneumothorax. Lungs are clear. Mediastinum: Mediastinal contours appear normal. Heart size is normal. Bones and chest wall: No suspicious bony lesions. Overlying soft tissues appear unremarkable. IMPRESSION: No acute cardiopulmonary disease process. Reviewed by: Miriam Martinez MD, PhD on 04/13/2021 6:14 PM PST Approved by: Miriam Martinez MD, PhD on 04/13/2021 6:14 PM PST Station ID: [id number]
[2021-04-13 18:19] LABS: BASOPHILS # (AUTO) 0.1 10^3/uL (0.0-0.1); BASOPHILS % (AUTO) 0.8 %; EOSINOPHILS # (AUTO) 0.1 10^3/uL (0.0-0.7); EOSINOPHILS % (AUTO) 0.9 %; HCT - HEMATOCRIT 42.6 % (37.0-47.0); HGB - HEMOGLOBIN 14.3 g/dL (12.0-16.0); LYMPHOCYTES # (AUTO) 3.5 10^3/uL (1.5-3.5); LYMPHOCYTES % (AUTO) 36.2 %; MEAN CORPUSCULAR HEMOGLOBIN 29.9 pg (27.0-31.0); MEAN CORPUSCULAR HGB CONC 33.6 g/dL (32.0-36.0); MEAN CORPUSCULAR VOLUME 88.9 fL (81.0-99.0); MEAN PLATELET VOLUME 10.3 fL (7.9-10.8); MONOCYTES # (AUTO) 0.9 10^3/uL (0.0-1.0); MONOCYTES % (AUTO) 9.2 %; NEUTROPHILS # (AUTO) 5.1 10^3/uL (1.5-6.6); NEUTROPHILS % (AUTO) 52.7 %; PLT - PLATELET COUNT 210 10^3/uL (130-450); RED BLOOD COUNT 4.79 10^6/uL (4.20-5.40); RED CELL DISTRIBUTION WIDTH 13.8 % (12.0-15.0); WHITE BLOOD COUNT 9.6 x10^3/uL (4.8-10.8)
[2021-04-13 19:01] LABS: ALBUMIN 4.1 g/dL (3.2-5.5); ALBUMIN/GLOBULIN RATIO 1.4 (1.0-2.2); BILIRUBIN,TOTAL 0.6 mg/dL (0.2-1.0); CALCIUM 9.2 mg/dL (8.5-10.3); CREATININE 0.8 mg/dL (0.4-1.0)
[2021-04-13 19:35] VITALS: BP 118/75
== END 2021-04-13 19:36 | disposition home or self-care (01) ==
LOC: ED 17:27
DX: R07.9 Chest pain, unspecified (principal)
CPT/HCPCS: 36415; 80053; 83690; 84484; 85025; 85379; 93005; 99284

== ENCOUNTER 2021-10-25 08:14 | Emergency (ER) | payer OTHER ==
[2021-10-25 08:25] VITALS: BP 123/77
--- NOTE | 2021-10-25 08:34 | ED Physician Documentation ---
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 She presents for the evaluation of atraumatic left shoulder pain of 2 days duration. She points to the superior portion of the left scapula as the site of pain. There was no injury. No obvious recollected movements that would have caused this. No possibility of . This is never happened before. She has taken ibuprofen which is fleetingly effective. [place] 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 HEENT: None Psych: Depression, Anxiety Musculoskeletal: None Derm: None - Past Surgical History Past Surgical History: No - Present Medications Home Medications: Ambulatory Orders Medication Instructions Recorded Confirmed Cyclobenzaprine [Flexeril] 10 mg PO TID PRN #20 tablet 10/25/21 Escitalopram Oxalate [Lexapro] 20 mg PO DAILY 10/25/21 10/25/21 Ibuprofen [Motrin] 600 mg PO Q6H PRN #30 tab 10/25/21 - Allergies Allergies/Adverse Reactions: Allergies Allergy/AdvReac Type Severity Reaction Status Date / Time No Known Drug Allergies Allergy Verified 10/25/21 08:21 - Social History Does the pt smoke?: No Smoking Status: Never smoker Does the pt drink ETOH?: Yes Does the pt have substance abuse?: No - Immunizations Immunizations are current?: Yes PD ED PE NORMAL - Vitals Vital signs reviewed: Yes - General General: Alert and oriented X 3, No acute distress - HEENT HEENT: PERRL, EOMI - Neck Neck: Supple, no meningeal sign, No bony TTP - Extremities Extremities: Other (Mild muscular tenderness about the superior part of the left scapula. No limited range of motion of the left shoulder and the clavicle and glenohumeral joints are nontender. She does have pain with forced internal rotation but not external rotation.) - Neuro Neuro: Alert and oriented X 3, Normal speech Results - Vitals Vitals: Vital Signs - 24 hr 10/25/21 08:23 Temperature 36.1 C L Heart Rate 72 Respiratory 16 Rate Blood Pressure 123/77 O2 Saturation 100 Oxygen O2 Source Room air - Rads (name of study) Three-view x-ray of the right shoulder is unremarkable Radiology: EMP read contemporaneously PD MEDICAL DECISION MAKING - ED course ED course: 26-year-old woman with what seems like muscular left shoulder pain with negative x-ray. No trauma. Departure - Departure Disposition: Home, Self Care Clinical Impression: Left shoulder pain Qualifiers: Chronicity: acute Qualified Code(s): M25.512 - Pain in left shoulder Condition: Good Record reviewed to determine appropriate education?: Yes Instructions: ED Shoulder Pain UKO Prescriptions: Cyclobenzaprine [Flexeril] 10 mg PO TID PRN #20 tablet PRN Reason: Spasms Ibuprofen [Motrin] 600 mg PO Q6H PRN #30 tab PRN Reason: Pain Comments: As discussed, it seems that the cause of your left shoulder pain is probably muscular. I would generally rest it with gentle stretching, heat, and anti- inflammatories. I am writing a work note for light duty with no work of the left arm. [place] and further evaluation and treatment if not better in short order. I am also prescribing a muscle relaxer, it is modestly sedating, do not drink or drive with it. Return for new or worsening symptoms. Forms: Activity restrictions Discharge Date/Time: 10/25/21 09:04
--- NOTE | 2021-10-25 08:56 | XRAY Report ---
PROCEDURE: Shoulder 3 View LT INDICATIONS: L shoulder pain TECHNIQUE: 3 views of the shoulder were acquired. COMPARISON: None. FINDINGS: Bones: No fractures or dislocations. No suspicious bony lesions. Visualized ribs appear intact. Soft tissues: No suspicious soft tissue calcifications. IMPRESSION: Normal exam. Reviewed by: Kenny Bond MD on 10/25/2021 8:55 AM PDT Approved by: Kenny Bond MD on 10/25/2021 8:55 AM PDT Station ID: [id number]
== END 2021-10-25 09:04 | disposition home or self-care (01) ==
LOC: ED 08:14
DX: M25.512 Pain in left shoulder (principal)
CPT/HCPCS: 99282; 99283

== ENCOUNTER 2021-11-03 13:11 | Emergency (ER) | payer OTHER ==
[2021-11-03 13:44] LABS: BASOPHILS # (AUTO) 0.1 10^3/uL (0.0-0.1); EOSINOPHILS % (AUTO) 0.4 %; HCT - HEMATOCRIT 41.6 % (37.0-47.0); HGB - HEMOGLOBIN 13.7 g/dL (12.0-16.0); LYMPHOCYTES # (AUTO) 2.2 10^3/uL (1.5-3.5); LYMPHOCYTES % (AUTO) 30.8 %; MEAN CORPUSCULAR HEMOGLOBIN 29.7 pg (27.0-31.0); MEAN CORPUSCULAR HGB CONC 32.9 g/dL (32.0-36.0); MEAN CORPUSCULAR VOLUME 90.2 fL (81.0-99.0); MEAN PLATELET VOLUME 9.6 fL (7.9-10.8); MONOCYTES # (AUTO) 0.7 10^3/uL (0.0-1.0); MONOCYTES % (AUTO) 9.2 %; NEUTROPHILS # (AUTO) 4.1 10^3/uL (1.5-6.6); NEUTROPHILS % (AUTO) 58.5 %; PLT - PLATELET COUNT 326 10^3/uL (130-450); RED BLOOD COUNT 4.61 10^6/uL (4.20-5.40); RED CELL DISTRIBUTION WIDTH 13.4 % (12.0-15.0); WHITE BLOOD COUNT 7.1 x10^3/uL (4.8-10.8)
[2021-11-03] MEDS ORDERED: IBUPROFEN 600 MG TABLET PO STA (14:02)
[2021-11-03 14:09] LABS: ACETAMINOPHEN < 10 ug/mL (10-30); ALBUMIN 4.9 g/dL (3.2-5.5); ALBUMIN/GLOBULIN RATIO 1.6 (1.0-2.2); ALKALINE PHOSPHATASE 44 IU/L (42-121); ALT ALANINE AMINOTRANSFERASE 14 IU/L (10-60); AST ASPARTATE AMINOTRANSFERASE 17 IU/L (10-42); BILIRUBIN,TOTAL 0.6 mg/dL (0.2-1.0); BUN - BLOOD UREA NITROGEN 10 mg/dL (6-20); CALCIUM 9.9 mg/dL (8.5-10.3); CARBON DIOXIDE - CO2 27 mmol/L (21-32); CHLORIDE 104 mmol/L (101-111); CREATININE 0.7 mg/dL (0.4-1.0); ETOH - ETHANOL < 5.0 mg/dL; GFR - MDRD 125 (>89); GLUCOSE 99 mg/dL (70-100); LIPASE 24 U/L (22-51); POTASSIUM 3.4 mmol/L (3.5-5.0); SALICYLATE < 6.0 mg/dL; SODIUM 141 mmol/L (135-145); TOTAL PROTEIN 7.9 g/dL (6.7-8.2)
[2021-11-03] MEDS ORDERED: POTASSIUM CHLORIDE 20 MEQ TABLET PO STA (15:19)
--- NOTE | 2021-11-03 15:19 | ED Physician Documentation ---
PD HPI MHE - Stated complaint Stated Complaint: MHE - Chief complaint Chief Complaint: MHE - History obtained from History obtained from: Patient - Additional information Additional information: Patient is a 26-year-old female Presenting for evaluation with suicidal thoughts and depression. 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 She does not feel supported at work. She is on Prozac. She has thoughts of overdosing on this medication. She reports being hospitalized in the past for suicide attempt. She was seen at [facility] [place] by a counselor and directed to the emergency department after she expressed suicidal thoughts. She reports that she has been downplaying her recent symptoms to her and her PCM.She drinks socially but denies drug use. 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 : None HEENT: None Psych: Depression, Anxiety Musculoskeletal: None Derm: None - Past Surgical History Past Surgical History: No - Present Medications Home Medications: Ambulatory Orders Medication Instructions Recorded Confirmed Cyclobenzaprine [Flexeril] 10 mg PO TID PRN #20 tablet 10/25/21 Escitalopram Oxalate [Lexapro] 20 mg PO DAILY 10/25/21 10/25/21 Ibuprofen [Motrin] 600 mg PO Q6H PRN #30 tab 10/25/21 FLUoxetine [PROzac] 20 mg PO DAILY 11/03/21 11/03/21 busPIRone [Buspar] 5 mg PO BID 11/03/21 11/03/21 - Allergies Allergies/Adverse Reactions: Allergies Allergy/AdvReac Type Severity Reaction Status Date / Time No Known Drug Allergies Allergy Verified 10/25/21 08:21 - Social History Does the pt smoke?: No Smoking Status: Never smoker Does the pt drink ETOH?: Yes Does the pt have substance abuse?: No - Immunizations Immunizations are current?: Yes PD ED PE NORMAL - General General: Alert and oriented X 3, No acute distress, Well developed/nourished - HEENT HEENT: Atraumatic, Moist mucous membranes - Neck Neck: Supple, no meningeal sign - Cardiac Cardiac: RRR, No murmur, Strong equal pulses - Respiratory Respiratory: No respiratory distress, Clear bilaterally - Abdomen Abdomen: Soft, Non tender, Non distended - Derm Derm: Warm and dry - Neuro Neuro: Normal speech - Psych Psych: Other (Soft-spoken, tearful) Results - Vitals Vitals: Vital Signs - 24 hr 11/03/21 11/03/21 11/03/21 13:18 19:16 19:45 Temperature 36.6 C 37.2 C Heart Rate 87 97 Respiratory 18 14 Rate Blood Pressure 134/84 H 131/86 H O2 Saturation 99 100 Oxygen O2 Source Room air - Labs Labs: Laboratory Tests 11/03/21 11/03/21 11/03/21 13:38 13:38 13:38 WBC 7.1 RBC 4.61 Hgb 13.7 Hct 41.6 MCV 90.2 MCH 29.7 MCHC 32.9 RDW 13.4 Plt Count 326 MPV 9.6 Neut # (Auto) 4.1 Lymph # (Auto) 2.2 [place] # (Auto) 0.7 Eos # (Auto) 0.0 Baso # (Auto) 0.1 Absolute Nucleated RBC 0.00 Nucleated RBC % 0.0 Sodium 141 Potassium 3.4 L Chloride 104 Carbon Dioxide 27 Anion Gap 10.0 BUN 10 Creatinine 0.7 Estimated GFR (MDRD) 125 Glucose 99 Calcium 9.9 Total Bilirubin 0.6 AST 17 ALT 14 Alkaline Phosphatase 44 Total Protein 7.9 Albumin 4.9 Globulin 3.0 Albumin/Globulin Ratio 1.6 Lipase 24 TSH 1.05 Urine Color Urine Clarity Urine pH Ur Specific [place] Urine Protein Urine Glucose (UA) Urine Ketones Urine Occult Blood Urine Nitrite Urine Bilirubin Urine Urobilinogen Ur Leukocyte Esterase Ur Microscopic Review Urine Culture Comments Urine HCG, Qual Salicylates < 6.0 Urine Opiates Screen Ur Oxycodone Screen Urine Methadone Screen Ur Propoxyphene Screen Acetaminophen < 10 L Ur Barbiturates Screen Ur Tricyclics Screen Ur Phencyclidine Scrn Ur Amphetamine Screen U Methamphetamines Scrn U Benzodiazepines Scrn Urine Cocaine Screen U Cannabinoids Screen Ethyl Alcohol < 5.0 SARS-CoV-2 (PCR) 11/03/21 11/03/21 16:08 16:22 WBC RBC Hgb Hct MCV MCH MCHC RDW Plt Count MPV Neut # (Auto) Lymph # (Auto) [place] # (Auto) Eos # (Auto) Baso # (Auto) Absolute Nucleated RBC Nucleated RBC % Sodium Potassium Chloride Carbon Dioxide Anion Gap BUN Creatinine Estimated GFR (MDRD) Glucose Calcium Total Bilirubin AST ALT Alkaline Phosphatase Total Protein Albumin Globulin Albumin/Globulin Ratio Lipase TSH Urine Color YELLOW Urine Clarity CLEAR Urine pH 6.0 Ur Specific [place] <=1.005 Urine Protein NEGATIVE Urine Glucose (UA) NEGATIVE Urine Ketones NEGATIVE Urine Occult Blood NEGATIVE Urine Nitrite NEGATIVE Urine Bilirubin NEGATIVE Urine Urobilinogen 0.2 (NORMAL) Ur Leukocyte Esterase NEGATIVE Ur Microscopic Review NOT INDICATED Urine Culture Comments NOT INDICATED Urine HCG, Qual NEGATIVE Salicylates Urine Opiates Screen NEGATIVE Ur Oxycodone Screen NEGATIVE Urine Methadone Screen NEGATIVE Ur Propoxyphene Screen NEGATIVE Acetaminophen Ur Barbiturates Screen NEGATIVE Ur Tricyclics Screen NEGATIVE Ur Phencyclidine Scrn NEGATIVE Ur Amphetamine Screen NEGATIVE U Methamphetamines Scrn NEGATIVE U Benzodiazepines Scrn NEGATIVE Urine Cocaine Screen NEGATIVE U Cannabinoids Screen NEGATIVE Ethyl Alcohol SARS-CoV-2 (PCR) NOT DETECTED PD MEDICAL DECISION MAKING - ED course Complexity details: reviewed results, re-evaluated patient ED course: Pt with SI. Voluntary. Medically cleared. Seen by SW and accepted by psych at [facility]. Pt agreeable to transfer. Cooperative here. 1833 - D/W Dr. Oconnor (pyschiatry) at [facility] who accepts pt for transfer. Departure - Departure Disposition: 65 Psych Hosp/Unit DC/Xfer Clinical Impression: Suicidal ideation Condition: Stable Discharge Date/Time: 11/03/21 20:10
[2021-11-03 16:26] LABS: MUDS CUTOFF CONCENTRATIONS CUTOFF CONC BELOW:
[2021-11-03 16:29] LABS: BILIRUBIN,URINE NEGATIVE (NEGATIVE); GLUCOSE, URINE (UA) NEGATIVE (NEGATIVE); KETONES,URINE (UA) NEGATIVE (NEGATIVE); LEUKOCYTE ESTERASE, URINE NEGATIVE (NEGATIVE); NITRITE,URINE NEGATIVE (NEGATIVE); OCCULT BLOOD,URINE NEGATIVE (NEGATIVE); PROTEIN,URINE NEGATIVE (NEGATIVE); UROBILINOGEN,URINE 0.2 (NORMAL) E.U./dL (NORMAL)
[2021-11-03 16:32] LABS: CLARITY,URINE CLEAR (CLEAR); HCG UR QUAL NEGATIVE
[2021-11-03 16:42] LABS: AMPHETAMINE SCREEN,URINE NEGATIVE (NEGATIVE); BARBITURATE SCREEN,UR NEGATIVE (NEGATIVE); BENZODIAZEPINES SCREEN, URINE NEGATIVE (NEGATIVE); COCAINE SCREEN URINE NEGATIVE (NEGATIVE); METHADONE SCREEN, URINE NEGATIVE (NEGATIVE); METHAMPHETAMINES SCREEN, URINE NEGATIVE (NEGATIVE); OPIATE SCREEN, URINE NEGATIVE (NEGATIVE); OXYCODONE SCREEN, URINE NEGATIVE (NEGATIVE); PROPOXYPHENE SCREEN, URINE NEGATIVE (NEGATIVE); THC CANNABINOID SCREEN, URINE NEGATIVE (NEGATIVE); TRICYCLIC ANTIDEPRESSANT,URINE NEGATIVE (NEGATIVE)
[2021-11-03 19:16] VITALS: BP 131/86
== END 2021-11-03 20:10 ==
LOC: EDUNIT# → ED 13:11
DX: R45.851 Suicidal ideations (principal); Z20.822 Contact with and (suspected) exposure to COVID-19
CPT/HCPCS: 36415; 80053; 80306; 80307; 80320; 80329; 81003; 81025; 83690; 84443; 85025; 87635; 99283; 99285; A9270; 81001; 87086

== ENCOUNTER 2021-11-25 08:25 | Emergency (ER) | payer OTHER ==
[2021-11-25] MEDS ORDERED: ONDANSETRON ODT 4 MG TABLET TL STA (09:02)
--- NOTE | 2021-11-25 09:05 | ED Physician Documentation ---
History of Present Illness - Stated complaint Stated Complaint: DIARRHEA - Chief complaint Chief Complaint: Abd Pain - History obtained from History obtained from: Patient - Additonal information Additional information: The patient comes to the emergency department chief complaint of diarrhea that started this morning. She states that she was exposed to her toddler aged son, who had an upper respiratory virus and diarrhea, as well. He was diagnosed with 2 separate viral syndromes when evaluated medically. The patient states her diarrhea started this morning around 3:00 and was very runny. She had 2 larger episodes and then a couple of smaller episodes since. No vomiting. The patient has some nausea which she has had for the last several days and attributes to her first trimester . She is about 4 weeks along she says. The patient denies fevers. She had a slight feeling of chills. She reports some cramping across her lower abdomen, worse on the left. No vaginal bleeding. No pain beyond some mild cramping. The patient denies any blood in her stools. No upper respiratory symptoms. No dysuria. No other complaints at this time. She is not on any nausea medicine at home. Review of Systems Ten Systems: 10 systems reviewed and negative Constitutional: reports: Chills Eyes: reports: Reviewed and negative Ears: reports: Reviewed and negative Nose: reports: Reviewed and negative Throat: reports: Reviewed and negative Cardiac: reports: Reviewed and negative Respiratory: reports: Reviewed and negative GI: reports: Nausea, Diarrhea : reports: Reviewed and negative Skin: reports: Reviewed and negative Musculoskeletal: reports: Reviewed and negative Neurologic: reports: Reviewed and negative Psychiatric: reports: Reviewed and negative Endocrine: reports: Reviewed and negative Immunocompromised: reports: Reviewed and negative PD PAST MEDICAL HISTORY - Past Medical History Cardiovascular: None Respiratory: None Neuro: Headaches, Migraines Endocrine/Autoimmune: None GI: 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 : None HEENT: None Psych: Depression, Anxiety Musculoskeletal: None Derm: None - Past Surgical History Past Surgical History: No - Present Medications Home Medications: Ambulatory Orders Medication Instructions Recorded Confirmed Cyclobenzaprine [Flexeril] 10 mg PO TID PRN #20 tablet 10/25/21 Escitalopram Oxalate [Lexapro] 20 mg PO DAILY 10/25/21 10/25/21 Ibuprofen [Motrin] 600 mg PO Q6H PRN #30 tab 10/25/21 FLUoxetine [PROzac] 20 mg PO DAILY 11/03/21 11/03/21 busPIRone [Buspar] 5 mg PO BID 11/03/21 11/03/21 Ondansetron Odt [Zofran] 4 mg TL Q6H PRN #10 tablet 11/25/21 - Allergies Allergies/Adverse Reactions: Allergies Allergy/AdvReac Type Severity Reaction Status Date / Time No Known Drug Allergies Allergy Verified 10/25/21 08:21 - Social History Does the pt smoke?: No Smoking Status: Never smoker Does the pt drink ETOH?: Yes Does the pt have substance abuse?: No - Immunizations Immunizations are current?: Yes PD ED PE NORMAL - Vitals Vital signs reviewed: Yes - General General: Alert and oriented X 3, No acute distress - HEENT HEENT: Atraumatic, PERRL, EOMI, Moist mucous membranes - Neck Neck: Supple, no meningeal sign - Cardiac Cardiac: RRR, No murmur, Strong equal pulses - Respiratory Respiratory: No respiratory distress, Clear bilaterally - Abdomen Abdomen: Normal bowel sounds, Soft, Non distended, Other (Mild lower abdominal tenderness in the left and right lower quadrants.) - Derm Derm: Normal color, Warm and dry, No rash - Extremities Extremities: No deformity, No edema - Neuro Neuro: Alert and oriented X 3 - Psych Psych: Normal mood, Normal affect Results - Vitals Vitals: Vital Signs - 24 hr 11/25/21 08:38 Temperature 37.1 C Heart Rate 93 Respiratory 18 Rate Blood Pressure 123/81 H O2 Saturation 100 Oxygen O2 Source Room air - Labs Labs: Laboratory Tests 11/25/21 08:48 Urine Color YELLOW Urine Clarity CLEAR Urine pH 6.5 Ur Specific [place] 1.015 Urine Protein NEGATIVE Urine Glucose (UA) NEGATIVE Urine Ketones NEGATIVE Urine Occult Blood NEGATIVE Urine Nitrite NEGATIVE Urine Bilirubin NEGATIVE Urine Urobilinogen 0.2 (NORMAL) Ur Leukocyte Esterase NEGATIVE Urine HCG, Qual POSITIVE PD MEDICAL DECISION MAKING - ED course Complexity details: reviewed results, re-evaluated patient, considered differential, d/w patient ED course: The patient was very well-appearing and her symptoms were fairly mild. She was treated symptomatically with Zofran and a urinalysis was obtained. Departure - Departure Disposition: 01 Home, Self Care Clinical Impression: Diarrhea Qualifiers: Diarrhea type: presumed infectious Qualified Code(s): R19.7 - Diarrhea, unspecified Condition: Stable Instructions: ED Diarrhea Viral Prescriptions: Ondansetron Odt [Zofran] 4 mg TL Q6H PRN #10 tablet PRN Reason: Nausea / Vomiting Comments: Your diarrhea is most likely caused by one of the many viruses that are going around right now. As such, it is expected to go away on its own. Please drink plenty of fluids and take the nausea medication as needed. The prescription for this has been electronically transmitted to [facility] pharmacy in [place]. Please follow-up with your OB, as scheduled. Forms: Activity restrictions
[2021-11-25 09:07] LABS: BILIRUBIN,URINE NEGATIVE (NEGATIVE); GLUCOSE, URINE (UA) NEGATIVE (NEGATIVE); KETONES,URINE (UA) NEGATIVE (NEGATIVE); LEUKOCYTE ESTERASE, URINE NEGATIVE (NEGATIVE); NITRITE,URINE NEGATIVE (NEGATIVE); OCCULT BLOOD,URINE NEGATIVE (NEGATIVE); PH,URINE 6.5 PH (5.0-7.5); PROTEIN,URINE NEGATIVE (NEGATIVE); UROBILINOGEN,URINE 0.2 (NORMAL) E.U./dL (NORMAL)
[2021-11-25 09:09] LABS: CLARITY,URINE CLEAR (CLEAR); HCG UR QUAL POSITIVE
[2021-11-25 09:20] VITALS: BP 121/83
[2021-11-25 09:25] LABS: BACTERIA,URINE Moderate /HPF (None Seen); RBC,URINE 0-5 /HPF (0-5); SQUAMOUS EPITHELIAL CELL,UR MOD Squamous (<= Few); WBC,URINE 0-3 /HPF (0-5)
== END 2021-11-25 09:20 | disposition home or self-care (01) ==
LOC: ED 08:25
DX: O99.891 Other specified diseases and conditions complicating pregnancy (principal); R19.7 Diarrhea, unspecified; R10.31 Right lower quadrant pain; R10.32 Left lower quadrant pain; Z3A.01 Less than 8 weeks gestation of pregnancy
CPT/HCPCS: 81001; 81025; 99282; 99283; Q0162; 87086

== ENCOUNTER 2022-01-10 10:25 | Outpatient (CLI) | payer OTHER ==
[2022-01-10 18:09] LABS: BASOPHILS # (AUTO) 0.1 10^3/uL (0.0-0.1); BASOPHILS % (AUTO) 0.5 %; EOSINOPHILS # (AUTO) 0.1 10^3/uL (0.0-0.7); EOSINOPHILS % (AUTO) 0.8 %; HCT - HEMATOCRIT 43.1 % (37.0-47.0); HGB - HEMOGLOBIN 13.7 g/dL (12.0-16.0); LYMPHOCYTES % (AUTO) 20.3 %; MEAN CORPUSCULAR HEMOGLOBIN 29.3 pg (27.0-31.0); MEAN CORPUSCULAR HGB CONC 31.8 g/dL (32.0-36.0); MEAN CORPUSCULAR VOLUME 92.1 fL (81.0-99.0); MEAN PLATELET VOLUME 11.1 fL (7.9-10.8); MONOCYTES # (AUTO) 0.8 10^3/uL (0.0-1.0); MONOCYTES % (AUTO) 7.7 %; NEUTROPHILS # (AUTO) 6.9 10^3/uL (1.5-6.6); NEUTROPHILS % (AUTO) 70.4 %; PLT - PLATELET COUNT 288 10^3/uL (130-450); RED BLOOD COUNT 4.68 10^6/uL (4.20-5.40); RED CELL DISTRIBUTION WIDTH 13.7 % (12.0-15.0); WHITE BLOOD COUNT 9.8 x10^3/uL (4.8-10.8)
== END 2022-01-10 10:26 | disposition home or self-care (01) ==
LOC: LAB.N 10:25
PROVIDERS: ATTEND Nurse Practitioner Obstetrics & Gynecology
DX: Z36.89 Encounter for other specified antenatal screening (principal)
CPT/HCPCS: 36415; 85025; 86592; 86762; 86787; 86803; 86850; 86900; 86901; 87340; 87389

== ENCOUNTER 2022-01-11 09:02 | Outpatient (CLI) | payer OTHER ==
[2022-01-12 05:10] LABS: HBsAG SCREEN Negative (Negative); HCV AB <0.1 s/co ratio (0.0-0.9)
[2022-01-12 07:10] LABS: RPR Non Reactive (Non Reactive)
[2022-01-12 09:09] LABS: VARICELLA-ZOSTER AB IGG <135 index (Immune >165)
[2022-01-12 23:08] LABS: HIV SCREEN 4TH GENERATION Non Reactive (Non Reactive)
== END 2022-01-11 09:03 | disposition home or self-care (01) ==
LOC: LAB 09:02
PROVIDERS: ATTEND Nurse Practitioner Obstetrics & Gynecology
DX: Z36.89 Encounter for other specified antenatal screening (principal)
CPT/HCPCS: 36415; 85025; 86592; 86762; 86787; 86803; 87340; 87389

== ENCOUNTER 2022-03-20 08:18 | Outpatient (CLI) | payer OTHER ==
--- NOTE | 2022-03-20 22:25 | Ultrasound Report ---
PROCEDURE: OB Detailed Eval INDICATIONS: SUPERVISION OF OUTSIDE/PRIOR DATING DATA: Last menstrual period (LMP): 10/23/2021. LMP-based estimated date of delivery (VERITO): 07/31/2022. First dating scan (date and location): 12/20/2021. Estimated date of delivery (VERITO) from first dating scan: 08/01/2022. The below data below was generated using the ultrasound VERITO of 08/01/2022 TECHNIQUE: Real-time scanning was performed of the fetus, with image documentation and biometric measurements. COMPARISON: OB ultrasound 12/20/2021 FINDINGS: General: A single living intrauterine gestation is present. Presentation: Breech Placenta: Placental position is anterior, without previa. Amniotic fluid index: 15.4 cm, 60th percentile for gestational age. Largest pocket 5.7 cm heart rate: 140 beats per minute. Maternal cervical canal: 5.0 cm long; normal length is 2.5 cm or more. biometrics: Biparietal diameter: 4.8 cm 20 weeks 4 days Head circumference: 18.3 cm 20 weeks 5 days Abdominal circumference: 16.1 cm 21 weeks 1 day Femur length: 2.5 cm 21 weeks 1 day Estimated gestational age from initial scan: 20 weeks 6 days Composite gestational age from present scan: 20 weeks 6 days Estimated weight and percentile: 400 g 59th percentile Measurement variability in biometric dating: +/- 10 days from 12-20 weeks gestation, +/- 2 weeks from 20-30 weeks gestation, +/- 3 weeks at 30 weeks gestation or later. Anatomic survey: Neuro: Ventricles are normal at less than 10 mm. Cisterna magna is normal at 3-11 mm. Cerebellum i s normal in size and morphology. Nuchal skin fold: Normal at less than 6 mm between 14 and 20 weeks gestational age. Face: Nose and lips, facial profile are normal. Spine: No evidence for spina bifida. Heart: 4-chambered heart is present, with normal ventricular outflow tracts. Diaphragm: Diaphragm is intact. Stomach: Left-sided stomach is present. Kidneys: No hydronephrosis. Normal is less than 5 mm in 2nd trimester, less than 7 mm in 3rd trimester. Cord: 3 vessel cord has orthotopic insertion. Bladder: Normal in size. Extremities: All 4 extremities are visualized. IMPRESSION: Single live intrauterine with ultrasound gestational age of 20 weeks 6 days. Anatomy is within normal limits. Reviewed by: Maria Esther Kaufman MD on 03/20/2022 10:23 PM PST Approved by: Maria Esther Kaufman MD on 03/20/2022 10:23 PM PST Station ID: [id number]
== END 2022-03-20 08:19 | disposition home or self-care (01) ==
LOC: DI 08:18
PROVIDERS: ATTEND Nurse Practitioner Obstetrics & Gynecology
DX: Z34.02 Encounter for supervision of normal first pregnancy, second trimester (principal); Z36.89 Encounter for other specified antenatal screening; Z3A.20 20 weeks gestation of pregnancy

== ENCOUNTER 2022-04-27 10:55 | Outpatient (CLI) | payer OTHER ==
[2022-04-27 12:18] LABS: HCT - HEMATOCRIT 34.8 % (37.0-47.0); HGB - HEMOGLOBIN 11.4 g/dL (12.0-16.0); MEAN CORPUSCULAR HEMOGLOBIN 29.9 pg (27.0-31.0); MEAN CORPUSCULAR HGB CONC 32.8 g/dL (32.0-36.0); MEAN CORPUSCULAR VOLUME 91.3 fL (81.0-99.0); MEAN PLATELET VOLUME 10.1 fL (7.9-10.8); RED BLOOD COUNT 3.81 10^6/uL (4.20-5.40); RED CELL DISTRIBUTION WIDTH 13.1 % (12.0-15.0); WHITE BLOOD COUNT 10.1 x10^3/uL (4.8-10.8)
== END 2022-04-27 10:56 | disposition home or self-care (01) ==
LOC: LAB 10:55
PROVIDERS: ATTEND Nurse Practitioner Obstetrics & Gynecology
DX: Z36.9 Encounter for antenatal screening, unspecified (principal)
CPT/HCPCS: 36415; 82950; 85027

== ENCOUNTER 2022-06-28 15:23 | Outpatient (CLI) | payer OTHER ==
[2022-06-28 15:56] VITALS: BP 130/82
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
== END 2022-06-28 17:30 | disposition home or self-care (01) ==
LOC: WFO 15:23 → FBP 15:24 → WFO 17:30
PROVIDERS: ATTEND Obstetrics & Gynecology
DX: Z34.83 Encounter for supervision of other normal pregnancy, third trimester (principal); W19.XXXA Unspecified fall, initial encounter
CPT/HCPCS: 59025; 99213

== ENCOUNTER 2022-08-01 01:01 | Inpatient (IN) | payer OTHER ==
--- NOTE | 2022-08-01 02:17 | HISTORY & PHYSICAL EXAMINATION ---
Admit History - Visit Reason Visit Reason: Membranes rupture - : 2 Parity: 1 Premature: 0 Ectopic: 0 : 0 Care: positive: Thu Midwifery Risk/History: positive: None Complications This : positive: None Smoking Status: Never smoker - Mother's Labs Mother's Blood Type: positive: O Mother's RH: positive: Positive GBS: positive: Group B Step Negative Rubella Status: positive: Immune Meds/Allgy - Home Medications Home Medications: Ambulatory Orders Medication Instructions Recorded Confirmed Cyclobenzaprine [Flexeril] 10 mg PO TID PRN #20 tablet 10/25/21 Escitalopram Oxalate [Lexapro] 20 mg PO DAILY 10/25/21 10/25/21 Ibuprofen [Motrin] 600 mg PO Q6H PRN #30 tab 10/25/21 FLUoxetine [PROzac] 20 mg PO DAILY 11/03/21 11/03/21 busPIRone [Buspar] 5 mg PO BID 11/03/21 11/03/21 Ondansetron Odt [Zofran] 4 mg TL Q6H PRN #10 tablet 11/25/21 - Allergies Allergies/Adverse Reactions: Allergies Allergy/AdvReac Type Severity Reaction Status Date / Time No Known Drug Allergies Allergy Verified 10/25/21 08:21 Review of Systems - Constitutional Constitutional: denies: Fatigue, Fever, Chills, Malaise - Eyes Eyes: denies: Blurred vision, Spots in vision, Dipolpia - Cardiovascular Cariovascular: denies: Irregular heart rate, Palpitations, Chest pain, Edema - Respiratory Respiratory: denies: Cough, Wheezing, SOB at rest - Gastrointestinal Gastrointestinal: denies: Constipation, Diarrhea, Nausea, Vomiting - Genitourinary Genitourinary: denies: Dysuria - Integumentary Integumentary: denies: Rash, Pruritis - Neurological Neurological: denies: Headache - Psychiatric Psychiatric: denies: Depression, Anxiety - Hematologic/Lymphatic Hematologic/Lymphatic: denies: Anemia Physical - Abdominal Exam Contraction Frequency (min/apart): 3-5 Contraction Intensity: positive: Mild Uterine Resting Tone: positive: Soft - Monitoring Heart Rate Baseline: 120 Strip Review: positive: Category I - Presentation Presentation: positive: Vertex - Vaginal Exam Membranes: positive: Membranes intact Dilation (in cm): 3 Effacement (%): 60 Station: positive: -2 Cervical Position: positive: Posterior - Speculum Exam Speculum Exam Performed: positive: No Findings: positive: Gross leak Plan for Labor - Plan For Labor I expect patient to be DC'd or transferred within 96 hours.: Yes Plan for Labor: HPI: This 27yo @ 40.1wks gestation by LMP c/w 8.0wk U/S presents to [facility] with c/o vaginal leakage of clear fluid. She reports she has been intermittently viviana for the past several days but feels she is tolerating them very well and they have not increased in frequency and intensity. She reports feeling a large gush of fluid at approximately 1215 this morning. She has had occasional light spotting with mucous. She reports +FM. She has been a patient of [facility] for the duration of her pre gnancy which has remained uncomplicated with the exception of a chlamydia exposure at 26 weeks gestation. She was treated and remained abstinent until negative RACHELE. She has a GC/CT repeated again at 36 weeks which was also negative. She has received consistent care. She is supported by her partner Teja today. 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 SAB x0. Last pap 06/2020-WNL, No hx of abnormals. Medical Hx: no significant Surgical Hx: wisdom teeth removal Family Hx: no significant Meds: PNV, fluoxetine Allergies: None known Social: , lives with Teja. 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 No tobacco, ETOH or recreational drug use. Caffeine intake is minimal. course: O positive, antibody negative Rubella immune, varicella non-immune Initial U/S @ 8.0wks gestation Genetic screening - negative FAS WNL. Anterior placenta, no previa. Size c/w dating. 3VC. IGNACIA WNL. Glucola 111 COVID vaccine x 2 (#2 12/2020) Tdap vaccine 3rd trimester Influenza vaccine declined GBS negative Physical exam: Normocephalic, atraumatic Heart RRR w/o M/G/R Lungs CTAB Abdomen gravid, soft, nontender EFW 3200g FHR baseline 140s, moderate variability, + accels, no decels Contractions palpate mild every 4-8 minutes with soft resting tone SVE 3/80/-3, posterior and vertex. Grossly ruptured membranes with clear fluid. Bilateral LE's no edema Mood is good. Assessment: 27yo @ 40.1wks gestation by LMP c/w 8.0wk U/S Early labor SROM GBS neg FHR Category I Plan: Admit to [facility] for expectant management. Intermittent heart rate auscultation Encouraged ambulation and position changes. Nitrous oxide PRN. Jacuzzi PRN. Epidural per maternal request. Anticipate .
[2022-08-01 02:46] LABS: BASOPHILS % (AUTO) 0.5 %; EOSINOPHILS % (AUTO) 0.5 %; HCT - HEMATOCRIT 29.2 % (37.0-47.0); HGB - HEMOGLOBIN 9.5 g/dL (12.0-16.0); LYMPHOCYTES % (AUTO) 24.7 %; MEAN CORPUSCULAR HEMOGLOBIN 28.3 pg (27.0-31.0); MEAN CORPUSCULAR HGB CONC 32.5 g/dL (32.0-36.0); MEAN CORPUSCULAR VOLUME 86.9 fL (81.0-99.0); MEAN PLATELET VOLUME 11.9 fL (7.9-10.8); MONOCYTES # (AUTO) 0.9 10^3/uL (0.0-1.0); MONOCYTES % (AUTO) 10.9 %; NEUTROPHILS % (AUTO) 62.9 %; PLT - PLATELET COUNT 175 10^3/uL (130-450); RED BLOOD COUNT 3.36 10^6/uL (4.20-5.40); RED CELL DISTRIBUTION WIDTH 13.8 % (12.0-15.0); WHITE BLOOD COUNT 7.9 x10^3/uL (4.8-10.8)
[2022-08-01] MEDS ORDERED: OXYTOCIN/SODIUM CHLORIDE 500 ML IV SCH (09:04)
--- NOTE | 2022-08-01 09:12 | PROVIDER PROGRESS NOTE ---
Labor Progress Note - Uterine Monitoring Uterine Monitoring Mode: positive: External toco Contraction Frequency (min/apart): intermittent Contraction Intensity: positive: Mild Uterine Resting Tone: positive: Soft - Monitoring Monitor Mode: positive: External ultrasound Heart Rate Baseline: 140 Heart Rate Variability: positive: Moderate (6-25 bmp) Accelerations: positive: Present, 15x15 Decelerations: positive: None Strip Review: positive: Category I - Vaginal Exam Dilation (in cm): 3 Effacement (%): 80 Station: -3 Cervical Position: Posterior - Labor Progress Note Labor Progress Note/Additional Text: S: Patient feeling comfortable with contractions. She is coping well and she does not feel the contractions have changed in either frequency or intensity. She is requesting an epidural prior to initiation of oxytocin for labor augmentation. Her partner Teja is supportive at the bedside. O: FHR baseline 140s, moderate variability, + accels, no decels Contractions palpate mild intermittently with soft resting tone SVE 3/80/-3, posterior and vertex. SROM x 9 hours A: 27yo @ 40.1wks gestation by LMP c/w 8.0wk U/S Early labor GBS negative FHR Category I P: Initiate pitocin for augmentation of labor with titration per protocol. Type and cross x 2 units secondary to increased hemorrhage risk due to anemia in addition to initiation of pitocin. Continuous monitoring Anesthesia notified to present for placement of epidural for pain management. Anticipate .
[2022-08-01] MEDS ORDERED: ROPIVACAINE 0.2% 200 MG/100 ML BAG EP ONE (09:23)
[2022-08-01] MEDS ORDERED: LACTATED RINGERS 1,000 ML ONE (09:56)
--- NOTE | 2022-08-01 10:00 | ANESTHESIA ---
Pre-Anesthesia VS, & Labs - Diagnosis labor - Procedure labor epidural Vital Signs: Temp Pulse Resp BP Pulse Ox O2 Flow Rate 36.9 C 88 20 132/89 H 99 08/01/22 03:02 08/01/22 03:02 08/01/22 03:02 08/01/22 03:02 08/01/22 01:25 Height: 5 ft 6 in Weight (kg): 77.111 kg Body Mass Index: 27.4 BMI Classification: Overweight - Is Patient ?: Yes - Lab Results Current Lab Results: Laboratory Tests 08/01/22 02:25: WBC 7.9, RBC 3.36 L, Hgb 9.5 L, Hct 29.2 L, MCV 86.9, MCH 28.3, MCHC 32.5, RDW 13.8, Plt Count 175, MPV 11.9 H, Neut # (Auto) 5.0, Lymph # (Auto) 2.0, [place] # (Auto) 0.9, Eos # (Auto) 0.0, Baso # (Auto) 0.0, Absolute Nucleated RBC 0.00, Nucleated RBC % 0.0 Lab results reviewed: Yes Fish Bones: 08/01/22 02:25 Home Medications and Allergies Active Medications Oxytocin/Sodium Chloride (Pitocin/Sodium Chloride) 500 mls @ 2 mls/hr IV TITR MARIVEL; Protocol Escitalopram Oxalate [Lexapro] 20 mg PO DAILY 10/25/21 FLUoxetine [PROzac] 20 mg PO DAILY 11/03/21 busPIRone [Buspar] 5 mg PO BID 11/03/21 Allergies/Adverse Reactions: Allergies Allergy/AdvReac Type Severity Reaction Status Date / Time No Known Drug Allergies Allergy Verified 10/25/21 08:21 Anes History & Medical History - Anesthetic History Anesthesia Complications: reports: No previous complications Family history of Anesthesia Complications: Denies Family history of Malignant Hyperthermia: Denies - Medical History Cardiovascular: reports: None Pulmonary: reports: None Gastrointestinal: reports: None Urinary: reports: None Neuro: reports: Headaches, Migraines Musculoskeletal: reports: None Endocrine/Autoimmune: reports: None Blood Disorders: reports: None Skin: reports: None Smoking Status: Never smoker - Obstetrical History : 2 Parity: 1 Events: reports: None Complications: reports: None Exam General: Alert, Oriented x3, Cooperative Dental: WNL Mouth Openin Fingerbreadth Neck Mobility: Normal Mallampati classification: II Thyromental Distance: 4-6 cm Respiratory: Lungs clear Cardiovascular: Regular rate Plan Anesthesia Type: Epidural Consent for Procedure(s) Verified and Reviewed: Yes Code Status: Attempt Resuscitation ASA classification: 2-Mild systemic disease Is this case an emergency?: No
[2022-08-01] MEDS ORDERED: ONDANSETRON 4 MG/2 ML VIAL IVP PRN (10:02)
[2022-08-01] MEDS ORDERED: NALOXONE 0.4 MG/ML VIAL IVP PRN (10:02)
[2022-08-01] MEDS ORDERED: diphenhydrAMINE INJ 50 MG/ML VIAL IVP PRN (10:02)
[2022-08-01] MEDS ORDERED: ePHEDrine 50 MG/ML VIAL IVP PRN (10:02)
[2022-08-01] MEDS ORDERED: NALBUPHINE 10 MG/ML AMP IVP PRN (10:02)
[2022-08-01] MEDS ORDERED: ROPIVACAINE 0.2% 200 MG/100 ML BAG EP PRN (10:02)
[2022-08-01] MEDS ORDERED: METOCLOPRAMIDE 10 MG/2 ML VIAL IVP PRN (10:02)
[2022-08-01] MEDS ORDERED: METHYLERGONOVINE 0.2 MG/ML VIAL IM PRN (10:06)
[2022-08-01] MEDS ORDERED: miSOPROStoL 200 MCG TABLET PR PRN (10:06)
[2022-08-01] MEDS ORDERED: LABETALOL 20 MG/4 ML SYRINGE IVP PRN ×3 (10:06)
[2022-08-01] MEDS ORDERED: OXYTOCIN/SODIUM CHLORIDE 500 ML IV PRN (10:06)
[2022-08-01] MEDS ORDERED: LACTATED RINGERS 1,000 ML IV PRN (10:06)
[2022-08-01] MEDS ORDERED: hydrALAZINE INJ 20 MG/ML VIAL IVP PRN ×2 (10:06)
[2022-08-01] MEDS ORDERED: lidocaine 1% 20 ML MDV ID PRN (10:06)
[2022-08-01] MEDS ORDERED: SODIUM CHLORIDE FLUSH 0.9% 10 ML SYRINGE IVP PRN (10:06)
[2022-08-01] MEDS ORDERED: TERBUTALINE 1 MG/ML VIAL SUBQ PRN (10:06)
[2022-08-01] MEDS ORDERED: OXYTOCIN 10 UNIT/ML VIAL IM PRN (10:06)
[2022-08-01] MEDS ORDERED: miSOPROStoL 200 MCG TABLET BC PRN (10:06)
[2022-08-01] MEDS ORDERED: NIFEdipine 10 MG CAPSULE PO PRN (10:06)
[2022-08-01] MEDS ORDERED: CARBOPROST TROMETHAMINE 250 MCG/ML AMP IM PRN (10:06)
[2022-08-01] MEDS ORDERED: TRANEXAMIC ACID IN NACL 1,000 MG/100 ML BAG IV PRN (10:06)
[2022-08-01] MEDS ORDERED: LACTATED RINGERS 1,000 ML IV SCH (11:00)
[2022-08-01] MEDS ORDERED: SODIUM CHLORIDE FLUSH 0.9% 10 ML SYRINGE IVP SCH (11:00)
--- NOTE | 2022-08-01 12:31 | PROVIDER PROGRESS NOTE ---
Labor Progress Note - Uterine Monitoring Uterine Monitoring Mode: positive: External toco Contraction Frequency (min/apart): 8 Contraction Intensity: positive: Moderate Uterine Resting Tone: positive: Soft - Monitoring Monitor Mode: positive: External ultrasound Heart Rate Baseline: 140 Heart Rate Variability: positive: Moderate (6-25 bmp) Accelerations: positive: Present, 15x15 Decelerations: positive: None Strip Review: positive: Category I - Vaginal Exam Dilation (in cm): 4 Effacement (%): 80 Station: -1 Cervical Position: Posterior - Labor Progress Note Labor Progress Note/Additional Text: S: Pt feeling increased discomfort with her contractions. She has pushed her [employer] several times without relief. She has rotated positions in bed on the peanut ball but has been unable to get comfortable enough to rest and sleep. She states the contractions are manageable but they are more uncomfortable than she remembers with her last epidural and she desires more relief at this time. Her partner is supportive at the bedside. O: FHR baseline 140s, moderate variability, + accels, no decels Contractions palpate moderate every 8 minutes with soft resting tone Pitocin currently at 6mU/mL SVE 4/80/-1, posterior and vertex SROM x 12 hours A: 27yo @ 40.1wks gestation by LMP c/w 8.0wk U/S Early labor GBS negative FHR Category I P: Anesthesia notified to present for evaluation of epidural for pain management and to improve her level of discomfort. Continue pitocin for augmentation of labor with titration per protocol. Continuous monitoring. Encouraged rotation in bed on peanut ball. Anticipate .
[2022-08-01] MEDS ORDERED: fentaNYL 100 MCG/2 ML VIAL ONE (14:39)
[2022-08-01] MEDS ORDERED: ROPIVACAINE 0.2% PF 10 ML VIAL ONE (14:40)
--- NOTE | 2022-08-01 14:45 | CONSULTATION NOTE ---
Consultation Report: Continuous pain with contractions for last 30mins. Sensory level assessed at L1.Patient had hit PCEAx3. Epidural bolus with 10cc 0.2% ropi,100mcg Fentanyl. Epidural dose changed to 12cc [id number] with 5ccPCEA if needed.
[2022-08-01] MEDS ORDERED: WITCH HAZEL/GLYCERIN 1 PAD TOP PRN (18:19)
[2022-08-01] MEDS ORDERED: HYDROCORTISONE 1% CREAM 28 GM TUBE PR PRN (18:19)
--- NOTE | 2022-08-01 18:28 | DELIVERY NOTE ---
Delivery Note - Labor Labor: positive: Augmented by oxytocin - Delivery Method Delivery Method: positive: Spontaneous vaginal delivery - Presentation Presentation: positive: Vertex, TIMI - left occiput anterior - Nuchal Cord Nuchal Cord: positive: None - Amniotic Fluid Description Amniotic Fluid Description: positive: Clear - Episiotomy Type Episiotomy Type: positive: None - Laceration Laceration: positive: None - Delivery Outcome Delivery Outcome: positive: Livebirth - [place]: positive: Placed in direct skin contact with mother, Stimulated, Warmed, [place] used sex: positive: Female - Cord Cord: positive: 3 vessels - Placenta Placenta: positive: Intact, Spontaneous - Estimated Blood Loss Estimated Blood Loss (in cc): 200 - Post Delivery Events Post Delivery Events: positive: No post delivery events - Delivery Comments (Free Text/Narrative) Delivery Comments (Free Text/Narrative): Labor: This 27yo @ 40.1wks gestation by LMP c/w 8.0wk U/S presented to [facility] in early labor and with grossly ruptured membranes with continued leakage of clear vaginal fluid. Onset of leakage occurred at 0015 on 08/01/2022. Upon arrival cervix was 3/80/-2, posterior and vertex. FHR pattern demonstrated a Category I pattern throughout labor. Normal labor course. Pitocin was initiated for labor augmentation with titration of protocol and a maximum infusion rate of 8mU/mL. Secondary to her admit Hgb/Hct (9.5/29.2) she was type and crossmatched with 2 units held back secondary to her increased risk of hemorrhage. Epidural was placed per maternal request. Pt progressed to anterior lip and +1 station at 1705 with an increased in pelvic pressure and discomfort with contractions with onset of spontaneous pushing effort at 1720. The anterior lip resolved at 1740. : Normal SVB of viable female on 08/01/2022 @ 1748. No nuchal cord. The was placed on maternal abdomen, stimulated, dried, and placed skin to skin. 's were 8/9 at 1 and 5 minutes respectively. Pitocin administered via IV for hemostasis. The umbilical cord was allowed to stop pulsating at which time it was doubly clamped by CNM and cut by FOB. Cord blood was obtained. Fundal massage and gentle cord traction applied for active management of the third stage. Placenta delivered spontaneously and intact at 1754. EBL 200mL. Fourth stage: Uterine fundus firm and there is no excessive bleeding. The perineum, vagina, and cervix were inspected and found to be intact. initiated. Family bonding well. Both mother and baby were left in stable condition.
[2022-08-01] MEDS: IBUPROFEN 800 MG TABLET PO SCH (18:37)
[2022-08-01] MEDS ORDERED: ACETAMINOPHEN 500 MG TABLET PO SCH (19:00)
[2022-08-01] MEDS: HYDROcod/ACETAM 5/325 MG TABLET PO PRN (23:26)
[2022-08-01] MEDS: DOCUSATE SODIUM 100 MG CAPSULE PO SCH (23:27)
[2022-08-02] MEDS: IBUPROFEN 800 MG TABLET PO SCH ×3 (00:57→16:50)
[2022-08-02] MEDS: ACETAMINOPHEN 325 MG TABLET PO SCH ×2 (02:15→13:43)
[2022-08-02] MEDS: HYDROcod/ACETAM 5/325 MG TABLET PO PRN ×4 (03:40→16:51)
--- NOTE | 2022-08-02 08:03 | ANESTHESIA POST OP EVALUATION ---
Anesthesia Post Eval - Post Anesthesia Eval Vitals: Last Vital Signs Temp 36.9 C 08/01/22 03:02 Pulse 88 08/01/22 03:02 Resp 20 08/01/22 03:02 BP 132/89 H 08/01/22 03:02 Pulse Ox 99 08/01/22 01:25 O2 Flow Rate CV Function Including HR & BP: Stable Pain Control: Satisfactory Nausea & Vomiting: Negative Mental Status: Baseline Respiratory Status: Airway Patent Hydration Status: Satisfactory Anesthesia Complications: None - Other Details/Therapies Other Details/Therapies: ambulating and urinating well, pt denies residual block or any other complaints. no anesthetic complications noted
[2022-08-02] MEDS: DOCUSATE SODIUM 100 MG CAPSULE PO SCH (08:06)
[2022-08-02 09:28] VITALS: BP 139/89
--- NOTE | 2022-08-02 10:48 | Discharge Plan ---
Discharge Plan Problem Reviewed?: Yes Disposition: Home, Self Care Condition: Good Diet: Regular Activity Restrictions: No Restrictions Shower Restrictions: No Driving Restrictions: No Weight Bearing: Full Weight Instruction Topics: Vaginal After No Smoking: If you smoke, Please STOP! Call for help. Follow-up with: Catalina Callaway CNM, ARNP [Primary Care Provider] - 1 Week
--- NOTE | 2022-08-02 11:01 | DISCHARGE SUMMARY ---
Discharge Summary Condition at Discharge: Good Discharge Disposition: 01 Home, Self Care - HOSPITAL COURSE Hospital Course: Date of Admission: 08/01/2022 Date of Discharge: 08/02/2022 Diagnosis on Admission: 1. 27yo @ 40.1wks gestation by LMP c/w 8.0wk U/S 2. Early labor 3. SROM 4. GBS neg 5. FHR Category I Diagnosis on Discharge: 1. 27yo PPD#1 s/p TSVB viable female 2. Perineum intact 3. 4. Normal recovery Brief History: She is a patient of [facility] who presented on 08/01/2022 in early labor. Cervix was 3/80/-2, posterior and vertex with grossly ruptured membranes with clear fluid. Pitocin was initiated for augmentation of labor for a maximum infusion rate of 8mU/mL. Epidural was placed per maternal request. She progressed to deliver a viable female on 08/01/2022 over intact perineum. Apgars were 8/9 at 1 and 5 minutes respectively. EBL 200mL. She has been doing well in her course. She is ambulating and tolerating a regular diet. She is urinating without difficulty and her lochia is normal. Her pain is well controlled with oral medications. She is without difficulty and bonding well wiith her baby. She will be discharge home today on day #1 with instructions to continue taking her vitamin while and to continue taking ibuprofen and tylenol over the counter as needed for pain management. She intends to follow up with myself at [facility] in 1 week for routine visit or sooner if needed. She has been given precautions to call if she has any worsening fevers, chills, abdominal pain, increased vaginal bleeding or foul smelling vaginal lochia. Physical Exam: Normocephalic, atraumatic. Heart RRR w/o M/G/R, lungs CTAB, abdomen soft and nontender with fundus firm at U-1, perineum intact, light lochia rubra, b ilateral LE's no edema. Mood is good. - ALLERGIES Allergies/Adverse Reactions: Allergies Allergy/AdvReac Type Severity Reaction Status Date / Time No Known Drug Allergies Allergy Verified 10/25/21 08:21 - MEDICATIONS Home Medications: Ambulatory Orders Medication Instructions Recorded Confirmed Cyclobenzaprine [Flexeril] 10 mg PO TID PRN #20 tablet 10/25/21 Escitalopram Oxalate [Lexapro] 20 mg PO DAILY 10/25/21 10/25/21 Ibuprofen [Motrin] 600 mg PO Q6H PRN #30 tab 10/25/21 FLUoxetine [PROzac] 20 mg PO DAILY 11/03/21 11/03/21 busPIRone [Buspar] 5 mg PO BID 11/03/21 11/03/21 Ondansetron Odt [Zofran] 4 mg TL Q6H PRN #10 tablet 11/25/21 - LABS Result Diagrams: 08/01/22 02:25
--- NOTE | 2022-08-02 19:32 | Labor Flowsheet ---
Labor Flowsheet Datetime Report Generated by CPN: 08/02/2022 19:31 Datetime: 08/02/2022 15:28 Membranes Ruptured Date/Time: 08/01/2022 00:15 Membranes Rupture Method: Spontaneous Amniotic Fluid Color: Clear Amniotic Fluid Amount: Moderate Amniotic Fluid Odor: Normal Datetime: 08/02/2022 13:44 VITAL SIGNS NBP Sys/Michelle/Mean (mmHg): 134 : 81 : 93 Pulse: 82 Datetime: 08/01/2022 18:00 Stage of : Datetime: 08/01/2022 17:40 VAGINAL EXAM Dilatation (cm): 10.0 Effacement (%): 100 Station: 0 Exam by: Catalina Darr Datetime: 08/01/2022 17:30 UTERINE ACTIVITY Monitor Mode: External Frequency (min): 1.5-3 Quality: Strong Duration (sec): 50-60 Pattern: Normal: <= 5 Contractions in 10 Minutes Resting Tone (Palpate): Relaxed Contraction Comments: approx. patient pushing @ 1722 ASSESSMENT A Monitor Mode: External US FHR Baseline Rate : 120 FHR Baseline Changes: No Baseline Change Variability: Moderate 6-25 bpm Accelerations: 15X15 Decelerations: None Category: Category I Datetime: 08/01/2022 17:21 STAGE 2 Pushing: Urge to Push Pushing Position: Pushing with Contractions Datetime: 08/01/2022 17:05 Vaginal Bleeding: Normal Show Cervix, Consistency: Soft Cervix, Position: Anterior Datetime: 08/01/2022 16:40 SpO2 (%): 100 COMMUNICATION LaborFlag: Labor Datetime: 08/01/2022 15:43 MEDICATIONS Pitocin (milliunits): Increased to @ 8 Datetime: 08/01/2022 14:30 Monitor Interventions for UA: [place] Adjusted Monitor Interventions for FHR: Ultrasound Adjusted Comments: Broken tracing. RN at bedside. No audible decels. Datetime: 08/01/2022 11:15 PATIENT CARE Patient Position/Activity: Left Lateral I/O Interventions: Nielson Cath Inserted Datetime: 08/01/2022 10:01 Temperature (C): 36.8 Temperature Route: Oral Datetime: 08/01/2022 09:40 Epidural Procedure: Loading Dose; Completed Epidural Procedure Other: Pump Started Datetime: 08/01/2022 09:30 Epidural Positioning: Sitting Datetime: 08/01/2022 09:25 PAIN Pain Scale: 5 Pain Presence: Intermittent Pain Type: Cramping Pain Location: Abdomen Pain Coping: Talking Through Contractions; Requesting Pain Medication or Epidural PROCEDURE TIME OUT Procedure Verify: Correct Patient Identity; Accurate Procedure Consent Form; Agreement on Procedure to be Done; Correct Patient Position Datetime: 08/01/2022 06:45 Pain Assessment Comments: declines hot pack Datetime: 08/01/2022 05:33 ASSESSMENT E Monitor Mode: External US Comments: EFM applied Patient Care Comments: Pt moved to rm [id number] for central EFM Datetime: 08/01/2022 02:55 Pain Goal: 7 ANESTHESIA Anesthesia Plans: Epidural TEACHING Instructional Method: Verbal; Patient Instructed; Family/Support Person Instructed Plan of Care: Labor Labor/Induction: Labor Stages; Interventions; Activity
== END 2022-08-02 19:25 | disposition home or self-care (01) | DRG 807 ==
LOC: WFO 01:01 → FBP 01:02 → WFO 01:49 → UNDOADMIN 01:50 → FBP 01:50
PROVIDERS: ADMIT Nurse Practitioner Obstetrics & Gynecology; ATTEND Nurse Practitioner Obstetrics & Gynecology
PROC: 10E0XZZ Delivery of Products of Conception, External Approach (ICD-10-PCS; principal; 2022-08-01)
DX: O48.0 Post-term pregnancy (principal); Z37.0 Single live birth; Z3A.40 40 weeks gestation of pregnancy; O99.02 Anemia complicating childbirth; D64.9 Anemia, unspecified
CPT/HCPCS: 36415; 85025; 86850; 86900; 86901; 86920; A9270; J7120